=== PATIENT | female | born 1960 | race Caucasian/White ===

== ENCOUNTER 2016-10-22 13:08 | Inpatient (IN) | payer SELFPAY ==
[2016-10-22] MEDS ORDERED: ONDANSETRON HCL INJ/PF 4 MG/2 ML SDV IV ONE ×2 (13:37→15:29)
[2016-10-22] MEDS ORDERED: NORMAL SALINE 1000 ML 1,000 ML IV PRN (13:37)
[2016-10-22] MEDS ORDERED: MORPHINE SULFATE 10 MG/ML INJ IV ONE ×3 (13:38→18:31)
--- NOTE | 2016-10-22 13:40 | ER Document Report ---
ED Medical Screen (RME) - General Chief Complaint: Vomiting/Diarrhea Stated Complaint: VOMITING Time Seen by Provider: 10/22/16 13:36 Notes: one day history of vomiting/diarrhea/abdominal cramps. no vaginal sx's. denies chronic medical conditions. TRAVEL OUTSIDE OF THE [place] IN LAST 30 DAYS: No - Related Data Allergies/Adverse Reactions: No Known Allergies Allergy (Verified 10/22/16 13:21) Past Medical History - Social History Frequency of alcohol use: None Drug Abuse: None Renal/ Medical History: Denies: Hx Peritoneal Dialysis Past Surgical History: Reports: Hx Hysterectomy Physical Exam - Vital signs Vitals: Temp Pulse Resp BP Pulse Ox 98.6 F 54 L 18 145/69 H 100 10/22/16 13:24 10/22/16 13:24 10/22/16 13:24 10/22/16 13:24 10/22/16 13:24 Course - Vital Signs Vital signs: Temp Pulse Resp BP Pulse Ox 98.6 F 54 L 18 145/69 H 100 10/22/16 13:24 10/22/16 13:24 10/22/16 13:24 10/22/16 13:24 10/22/16 13:24
[2016-10-22 14:15] LABS: ABSOLUTE BASOPHILS # (AUTO) 0.2 10^3/uL (0.0-0.2); ABSOLUTE LYMPHOCYTES (AUTO) 1.5 10^3/uL (0.5-4.7); ABSOLUTE MONOCYTES (AUTO) 0.7 10^3/uL (0.1-1.4); ABSOLUTE NEUT (AUTO) 15.8 10^3/uL (1.7-8.2); BASOPHILS % (AUTO) 0.8 % (0-2); HEMATOCRIT 38.8 % (36.0-47.0); HEMOGLOBIN 13.2 g/dL (12.0-15.5); HGB HCT DIFFERENCE 0.8; LYMPHOCYTES % (AUTO) 8.1 % (13-45); MEAN CORPUSCULAR HEMOGLOBIN 30.4 pg (27.0-33.4); MEAN CORPUSCULAR VOLUME 89 fl (80-97); RED BLOOD COUNT 4.35 10^6/uL (3.72-5.28); RED CELL DISTRIBUTION WIDTH 13.1 % (11.5-14.0); SEGMENTED NEUTROPHILS % (AUTO) 87.1 % (42-78); WHITE BLOOD COUNT 18.2 10^3/uL (4.0-10.5)
[2016-10-22 14:33] LABS: ALANINE AMINOTRANSFERASE 19 U/L (9-52); ALBUMIN 4.7 g/dL (3.5-5.0); ALKALINE PHOSPHATASE 101 U/L (38-126); ANION GAP 17 (5-19); ASPARTATE AMINO TRANSFERASE 26 U/L (14-36); BILIRUBIN,DIRECT 0.4 mg/dL (0.0-0.4); BILIRUBIN,TOTAL 0.8 mg/dL (0.2-1.3); BLOOD UREA NITROGEN 17 mg/dL (7-20); CALCIUM 10.5 mg/dL (8.4-10.2); CARBON DIOXIDE 20 mmol/L (22-30); CHLORIDE 106 mmol/L (98-107); CREATININE RESULT 0.61 mg/dL (0.52-1.25); GLUCOSE 189 mg/dL (75-110); LIPASE 52.9 U/L (23-300); POTASSIUM 3.3 mmol/L (3.6-5.0); SODIUM 143.1 mmol/L (137-145)
--- NOTE | 2016-10-22 14:38 | ER Document Report ---
ED GI/ - General Chief Complaint: Vomiting/Diarrhea Stated Complaint: VOMITING Time Seen by Provider: 10/22/16 13:36 Notes: Patient says she was awakened about 1 AM this morning with severe abdominal pain , primarily in the epigastric region of the abdomen. She is also had vomiting and diarrhea since this pain started. She has never had anything like this before. Denies a history of alcohol intake or pancreatitis. Not aware of any fever. No UTI symptoms. Patient has a history of tubal surgery. History of tubal ligation. Very distant history about 30 years ago being told she had cervical cancer and underwent a partial hysterectomy in which her ovaries and tubes were removed but her uterus was left in place. Does not think she had her appendix out. Denies gallbladder removal. Patient is on no prescription medications. TRAVEL OUTSIDE OF THE [place] IN LAST 30 DAYS: No - Related Data Allergies/Adverse Reactions: No Known Allergies Allergy (Verified 10/22/16 13:21) Past Medical History - Social History Smoking Status: Current Every Day Smoker Frequency of alcohol use: None Drug Abuse: None Family History: Reviewed & Not Pertinent Patient has suicidal ideation: No Malignancy Medical History: Reports: Hx Cervical Cancer - Told 30 yrs ago she had cervical cancer, had partial hyst, removed ovaries Past Surgical History: Reports: Hx Abdominal Surgery - See above. Had a "partial hyst" and had ovaries and tubes removed., Hx Hysterectomy, Hx Ileostomy Review of Systems - Review of Systems Notes: REVIEW OF SYSTEMS: CONSTITUTIONAL : Does not think she has had a fever. Appears to be in significant pain, near tears. EENT: Denies eye, ear, nose or mouth or throat pain or other symptoms. CARDIOVASCULAR: Denies chest pain. RESPIRATORY: Denies cough, chest congestion, or shortness of breath. GASTROINTESTINAL: See HPI. GENITOURINARY: Denies difficulty or painful urinating, urinary frequency, blood in urine. MUSCULOSKELETAL: Denies back or neck pain. Denies joint pain or swelling. SKIN: Denies rash or skin lesions. NEUROLOGICAL: Denies LOC or altered mental status. Denies headache. Denies sensory loss or motor deficits. ALL OTHER SYSTEMS REVIEWED AND NEGATIVE. Physical Exam - Vital signs Vitals: Temp Pulse Resp BP Pulse Ox 98.6 F 54 L 18 145/69 H 100 10/22/16 13:24 10/22/16 13:24 10/22/16 13:24 10/22/16 13:24 10/22/16 13:24 Interpretation: Normal - Notes Notes: PHYSICAL EXAMINATION: GENERAL: Appears in pain. Near tearful. Vital signs are all normal. HEAD: Atraumatic, normocephalic. ENT: oropharynx clear without exudates. Moist mucous membranes. NECK: Normal range of motion, supple. LUNGS: Breath sounds clear and equal bilaterally. HEART: Regular rate and rhythm without murmurs. ABDOMEN: Very tender in the epigastric region of the abdomen. Some guarding may be present. No masses felt. No bruits heard. BACK: No tenderness throughout entire back. EXTREMITIES: Normal range of motion without pain. NEUROLOGICAL: Normal speech, normal gait. Normal sensory, motor, and reflex exams. Awake, alert, and oriented x3. Cranial nerves normal. PSYCH: Normal mood, normal affect. SKIN: Warm, dry, no rashes. Course - Re-evaluation Re-evalutation: 10/22/16 17:49 Patient was given 2 separate doses of morphine 4 mg IV for pain control and that seemed to help her pain significantly. She was also given a couple of doses of Zofran and 1 of Reglan which seemed to help her nausea and vomiting as well. Spoke with hospitalist on-call, Dr. Gibson, who will admit the patient for IV fluids and antibiotics. - Vital Signs Vital signs: Temp Pulse Resp BP Pulse Ox 98.6 F 54 L 18 145/69 H 100 10/22/16 13:24 10/22/16 13:24 10/22/16 13:24 10/22/16 13:24 10/22/16 13:24 - Laboratory Result Diagrams: 10/22/16 13:55 10/22/16 13:55 Laboratory results interpreted by me: 10/22/16 10/22/16 10/22/16 13:55 13:55 15:40 WBC 18.2 H Seg Neutrophils % 87.1 H Lymphocytes % 8.1 L Absolute Neutrophils 15.8 H Potassium 3.3 L Carbon Dioxide 20 L Glucose 189 H Calcium 10.5 H Urine Glucose (UA) 150 H Urine Ketones 20 H Urine Blood SMALL H Ur Leukocyte Esterase TRACE H - Diagnostic Test Radiology reviewed: Image reviewed, Reports reviewed - CT scan of the abdomen reveals diffuse thickening of the colon wall, consistent with colitis. Discharge - Discharge Clinical Impression: Abdominal pain, Colitis Condition: Stable Disposition: ADMITTED INPATIENT Admitting Provider: Hospitalist Unit Admitted: Medical Floor
[2016-10-22] MEDS ORDERED: METOCLOPRAMIDE HCL INJ/PF 10 MG/2 ML SDV IV ONE (15:30)
[2016-10-22] MEDS ORDERED: METOCLOPRAMIDE HCL INJ/PF 10 MG/2 ML SDV ONE (15:35)
[2016-10-22 16:07] LABS: APPEARANCE,URINE CLEAR; BILIRUBIN,URINE NEGATIVE (NEGATIVE); GLUCOSE, URINE 150 mg/dL (NEGATIVE); KETONES,URINE 20 mg/dL (NEGATIVE); LEUKOCYTE ESTERASE,URINE TRACE (NEGATIVE); NITRITE,URINE NEGATIVE (NEGATIVE); PROTEIN,URINE NEGATIVE (NEGATIVE); URINE SPECIFIC GRAVITY 1.014; UROBILINOGEN,URINE NEGATIVE mg/dL (<2.0)
--- NOTE | 2016-10-22 17:30 | RADIOLOGY REPORT (SQ) ---
EXAM DESCRIPTION: CT ABD/PELVIS WITH IV ORAL COMPLETED DATE/TIME: 10/22/2016 5:07 pm REASON FOR STUDY: Abdominal pain with vomiting and diarrhea COMPARISON: 02/27/2015. TECHNIQUE: CT scan of the abdomen and pelvis performed using helical scanning technique with dynamic intravenous contrast injection. No oral contrast. Images reviewed with lung, soft tissue, and bone windows. Reconstructed coronal and sagittal MPR images reviewed. Delayed images for evaluation of the urinary system also acquired. All images stored on PACS. All CT scanners at this facility use dose modulation, iterative reconstruction, and/or weight based d osing when appropriate to reduce radiation dose to as low as reasonably achievable (ALARA). [facility]: Dose Right [facility]: CareDose [facility]: Dose Right [facility]: Teradose 4D [facility]: Mapado CONTRAST TYPE AND DOSE: contrast/concentration: Isovue 370.00 mg/ml; Total Contrast Delivered: 49.0 ml; Total Saline Delivered: 65.0 ml RENAL FUNCTION: None required. The patient is less than 50 years old. RADIATION DOSE: Up-to-date CT equipment and radiation dose reduction techniques were employed. CTDIv ol: 4.8 - 5.3 mGy. DLP: 461 mGy-cm.. LIMITATIONS: None. FINDINGS: LOWER CHEST: No significant findings. No nodules or infiltrates. LIVER: Normal size. No masses. No dilated ducts. SPLEEN: Normal size. No focal lesions. PANCREAS: No masses. No significant calcifications. No adjacent inflammation or peripancreatic fluid collections. Pancreatic duct not dilated. GALLBLADDER: No identified stones by CT criteria. No inflammatory changes to suggest cholecystitis. ADRENAL GLANDS: No significant masses or asymmetry. RIGHT KIDNEY AND URETER: Small cortical cysts. No solid masses. No significant calcifications. N o hydronephrosis or hydroureter. LEFT KIDNEY AND URETER: Small cortical cysts. No solid masses. No significant calcifications. No hydronephrosis or hydroureter. AORTA AND VESSELS: No aneurysm. No dissection. Renal arteries, SMA, celiac without stenosis. RETROPERITONEUM: No retroperitoneal adenopathy, hemorrhage or masses. BOWEL AND PERITONEAL CAVITY: Suboptimal contrast filling of the distal small bowel and colon. Genera l bowel wall thickening throughout the colon. Scattered diverticuli in the sigmoid colon. No free f luid or peritoneal masses. APPENDIX: Not visualized. PELVIS: No mass. No free fluid. Normal bladder. ABDOMINAL WALL: No masses. No hernias. BONES: No significant or acute findings. OTHER: No other significant finding. IMPRESSION: 1. GENERAL BOWEL WALL THICKENING THROUGHOUT THE COLON. THIS MAY BE ARTIFACT DUE TO POOR CONTRAST DIS TENTION ALTHOUGH DIFFUSE COLITIS COULD BE POSSIBLE WELL. NO CLEAR-CUT INVOLVEMENT OF SMALL BOWEL. 2. SMALL CORTICAL CYSTS IN THE KIDNEYS. 3. NO OTHER SIGNIFICANT OR ACUTE FINDING IN THE ABDOMEN OR PELVIS ON CT SCAN WITH IV CONTRAST. TECHNICAL DOCUMENTATION: JOB ID: [id number] Quality ID # [id number]: Final reports with documentation of one or more dose reduction techniques (e.g., Au tomated exposure control, adjustment of the mA and/or kV according to patient size, use of iterative reconstruction technique) 2010 [employer]- All Rights Reserved
[2016-10-22] MEDS ORDERED: METRONIDAZOLE 500 MG/NS RTU 100 ML IV ONE (18:33)
[2016-10-22] MEDS ORDERED: ONDANSETRON HCL INJ/PF 4 MG/2 ML SDV IV PRN (18:48)
[2016-10-22] MEDS ORDERED: PIPERACILLIN/TAZOBACTAM 3.375 GM VIAL IV ONE (18:50)
[2016-10-22] MEDS ORDERED: PROMETHAZINE HCL INJ 25 MG/1 ML VIAL IV PRN ×2 (18:51→19:40)
[2016-10-22] MEDS ORDERED: PIPERACILLIN SODIUM/TAZOBACTAM 3.375 GM in DEXTROSE 5%-WATER 100 ML IV SCH (21:00)
[2016-10-22] MEDS: PIPERACILLIN SODIUM/TAZOBACTAM 3.375 GM in DEXTROSE 5%-WATER 100 ML IV SCH (21:36)
[2016-10-22] MEDS: POTASSI CL 20 MEQ/NS 1L 1,000 ML IV PRN (21:36)
--- NOTE | 2016-10-23 01:05 | PDOC H&P ---
History of Present Illness Admission Date/PCP: 10/22/16 18:39 No PCP Patient complains of: Abdominal pain with vomiting and diarrhea History of Present Illness: LEON SEXTON is a 55 year old female ending with a 1 day history of abdominal pain with vomiting and diarrhea. Patient states she was doing well until last night where she went to bed after eating onion rings and a cheeseburger anesthetic a bar. Patient said about 1:00 she started developing some abdominal cramping cold chills nausea vomiting and diarrhea. Patient states that she had multiple bouts of diarrhea at times unable to make it to the bathroom. Patient simultaneously had vomiting. Patient states she was just about vomiting fluids. Patient denied any blood in the stools. Patient denies anybody at home being sick however she does states that her neighbor's 2 children had similar symptoms earlier in the week. In the ED patient was found to have leukocytosis of 18,000 and mild hypokalemia of 3.3. CT scan was concerning for possible diffuse colitis. Hospitalist services core to admit the patient for symptomatic treatment of her colitis. Past Medical History Cardiac Medical History: Reports: None Pulmonary Medical History: Reports: None EENT Medical History: Reports: None Neurological Medical History: Reports: None Endocrine Medical History: Reports: None Renal/ Medical History: Reports: None Malignancy Medical History: Reports: Cervical Cancer - Told 30 yrs ago she had cervical cancer, had partial hyst, removed ovaries GI Medical History: Reports: None Musculoskeltal Medical History: Reports: None Psychiatric Medical History: Reports: Bipolar Disorder Traumatic Medical History: Reports: None Hematology: Reports: None Infectious Medical History: Reports: None Past Surgical History Past Surgical History: Reports: Hysterectomy, Ileostomy Social History Information Source: Patient Smoking Status: Current Every Day Smoker - Advance Directive Resuscitation Status: Full Code Family History Family History: Reviewed & Not Pertinent Parental Family History Reviewed: No Children Family History Reviewed: No Sibling(s) Family History Reviewed.: No Medication/Allergy Home Medications: No Home Medications 10/22/16 Allergies/Adverse Reactions: No Known Allergies Allergy (Verified 10/22/16 13:21) Review of Systems Constitutional: PRESENT: chills, weakness Ears: ABSENT: hearing changes Nose, Mouth, and Throat: PRESENT: mouth pain. ABSENT: vertigo Cardiovascular: ABSENT: chest pain Respiratory: ABSENT: dyspnea Gastrointestinal: PRESENT: abdominal pain, diarrhea, vomiting Genitourinary: ABSENT: dysuria Musculoskeletal: ABSENT: deformity Integumentary: PRESENT: diaphoresis Neurological: PRESENT: weakness Endocrine: ABSENT: menstrual abnormalities Physical Exam Vital Signs: Temp Pulse Resp BP Pulse Ox 98.6 F 57 L 16 107/51 L 98 10/22/16 20:40 10/22/16 20:40 10/22/16 20:40 10/22/16 20:40 10/22/16 20:40 General appearance: PRESENT: no acute distress, cooperative, thin Head exam: PRESENT: normocephalic Eye exam: PRESENT: EOMI Respiratory exam: PRESENT: clear to auscultation gayatri Cardiovascular exam: PRESENT: RRR GI/Abdominal exam: PRESENT: normal bowel sounds, soft. ABSENT: tenderness Rectal exam: PRESENT: deferred Extremities exam: PRESENT: full ROM. ABSENT: joint swelling Musculoskeletal exam: PRESENT: full ROM, normal inspection Neurological exam: PRESENT: alert, awake, oriented to person, oriented to place , oriented to time, oriented to situation, CN II-XII grossly intact Psychiatric exam: PRESENT: normal mood Results Impressions: Abdomen/Pelvis CT 10/22/16 00:00 IMPRESSION: 1. GENERAL BOWEL WALL THICKENING THROUGHOUT THE COLON. THIS MAY BE ARTIFACT DUE TO POOR CONTRAST DISTENTION ALTHOUGH DIFFUSE COLITIS COULD BE POSSIBLE WELL. NO CLEAR-CUT INVOLVEMENT OF SMALL BOWEL. 2. SMALL CORTICAL CYSTS IN THE KIDNEYS. 3. NO OTHER SIGNIFICANT OR ACUTE FINDING IN THE ABDOMEN OR PELVIS ON CT SCAN WITH IV CONTRAST. Assessment & Plan - Diagnosis (1) Abdominal pain Qualifiers: Abdominal location: generalized Qualified Code(s): R10.84 - Generalized abdominal pain Is this a current diagnosis for this admission?: Yes Plan: Most likely due to her colitis/gastroenteritis which could be viral in nature. Supportive treatment with pain medication and PPI. (2) Colitis Is this a current diagnosis for this admission?: Yes Plan: Seen on CT scan. Patient also with vomiting and diarrhea. This could most likely viral in nature. Will continue IV hydration and empiric antibiotics ( Zosyn and Flagyl). Stool studies were ordered including C. difficile. (3) Hypokalemia Plan: Patient placed on fluids with potassium. Patient hypokalemia most likely due to GI losses. (4) Leukocytosis Qualifiers: Leukocytosis type: leukemoid reaction Qualified Code(s): D72.823 - Leukemoid reaction Is this a current diagnosis for this admission?: Yes Plan: Could very well be reactive, due to hemoconcentration from dehydration resulting from the vomiting/diarrhea for could be related to acute GI infection. Urine not impressive and stool studies are ordered. Patient is on IV antibiotics empirically. Will repeat CBC in the morning to see if there is resolution. (5) Nausea and vomiting Qualifiers: Vomiting type: unspecified Vomiting Intractability: non-intractable Qualified Code(s): R11.2 - Nausea with vomiting, unspecified Is this a current diagnosis for this admission?: Yes Plan: Due to her colitis or gastroenteritis. Patient on as needed antiemetics. Also receiving fluid resuscitation. Patient started on a liquid diet. Has not had any more vomiting (6) Diarrhea Qualifiers: Diarrhea type: presumed infectious Qualified Code(s): A09 - Infectious gastroenteritis and colitis, unspecified Is this a current diagnosis for this admission?: Yes Plan: Due to a gastroenteritis and/or colitis. Stool studies were ordered awaiting specimen. Continue supportive care. - Time Time Spent: 30 to 50 Minutes Anticipated discharge: Home Within: within 48 hours - She is starting to already show clinical improvement.
[2016-10-23] MEDS: METRONIDAZOLE 500 MG/NS RTU 100 ML IV SCH ×2 (01:30→10:07)
[2016-10-23] MEDS: PIPERACILLIN SODIUM/TAZOBACTAM 3.375 GM in DEXTROSE 5%-WATER 100 ML IV SCH ×3 (03:13→14:27)
[2016-10-23 05:55] LABS: ABSOLUTE LYMPHOCYTES (AUTO) 3.2 10^3/uL (0.5-4.7); ABSOLUTE NEUT (AUTO) 8.1 10^3/uL (1.7-8.2); BASOPHILS % (AUTO) 0.3 % (0-2); EOSINOPHILS % (AUTO) 0.2 % (0-6); HEMATOCRIT 32.4 % (36.0-47.0); HEMOGLOBIN 11.4 g/dL (12.0-15.5); HGB HCT DIFFERENCE 1.8; MEAN CORPUSCULAR HEMOGLOBIN 31.7 pg (27.0-33.4); MEAN CORPUSCULAR HGB CONC 35.4 g/dL (32.0-36.0); MEAN CORPUSCULAR VOLUME 90 fl (80-97); MONOCYTES % (AUTO) 8.1 % (3-13); RED BLOOD COUNT 3.61 10^6/uL (3.72-5.28); RED CELL DISTRIBUTION WIDTH 13.1 % (11.5-14.0); SEGMENTED NEUTROPHILS % (AUTO) 65.4 % (42-78); WHITE BLOOD COUNT 12.5 10^3/uL (4.0-10.5)
[2016-10-23 06:07] LABS: ALANINE AMINOTRANSFERASE 15 U/L (9-52); ALBUMIN 3.8 g/dL (3.5-5.0); ALKALINE PHOSPHATASE 72 U/L (38-126); ANION GAP 10 (5-19); ASPARTATE AMINO TRANSFERASE 14 U/L (14-36); BILIRUBIN,DIRECT 0.4 mg/dL (0.0-0.4); BILIRUBIN,TOTAL 0.8 mg/dL (0.2-1.3); BLOOD UREA NITROGEN 10 mg/dL (7-20); CALCIUM 9.8 mg/dL (8.4-10.2); CARBON DIOXIDE 25 mmol/L (22-30); CHLORIDE 108 mmol/L (98-107); CREATININE RESULT 0.71 mg/dL (0.52-1.25); GLUCOSE 91 mg/dL (75-110); MAGNESIUM 1.9 mg/dL (1.6-2.3); POTASSIUM 4.1 mmol/L (3.6-5.0); SODIUM 143.1 mmol/L (137-145); TOTAL PROTEIN 6.5 g/dL (6.3-8.2)
[2016-10-23] MEDS: MORPHINE SULFATE 10 MG/ML INJ IV PRN ×2 (06:11→11:00)
[2016-10-23] MEDS ORDERED: PANTOPRAZOLE SODIUM 40 MG VIAL IV SCH (10:00)
[2016-10-23] MEDS: POTASSI CL 20 MEQ/NS 1L 1,000 ML IV PRN (10:06)
[2016-10-23 11:36] VITALS: BP 99/54
--- NOTE | 2016-10-23 13:11 | PDOC DISCHARGE SUMMARY ---
General - Admit/Disc Date/PCP Admission Date/Primary Care Provider: 10/22/16 18:39 Discharge Date: 10/23/16 - Discharge Diagnosis (1) Viral gastroenteritis Summary: Diarrhea has slowed. That is far the patient has had one small loose stool this morning. She would like to go home today. I think this is reasonable. Continue supportive care at home with copious p.o. fluids. She may follow with her outpatient doctor as needed. (2) Hypokalemia Summary: Supplemented and resolved. (3) Nausea and vomiting Is this a current diagnosis for this admission?: Yes Summary: Patient still complains of nausea but has not had any vomiting. - Additional Information Resuscitation Status: Full Code Home Medications: No Home Medications 10/22/16 History of Present Illness History of Present Illness: HPI as per admitting physician: Patient complains of: Abdominal pain with vomiting and diarrhea History of Present Illness: LEON SEXTON is a 55 year old female ending with a 1 day history of abdominal pain with vomiting and diarrhea. Patient states she was doing well until last night where she went to bed after eating onion rings and a cheeseburger anesthetic a bar. Patient said about 1:00 she started developing some abdominal cramping cold chills nausea vomiting and diarrhea. Patient states that she had multiple bouts of diarrhea at times unable to make it to the bathroom. Patient simultaneously had vomiting. Patient states she was just about vomiting fluids. Patient denied any blood in the stools. Patient denies anybody at home being sick however she does states that her neighbor's 2 children had similar symptoms earlier in the week. In the ED patient was found to have leukocytosis of 18,000 and mild hypokalemia of 3.3. CT scan was concerning for possible diffuse colitis. Hospitalist services core to admit the patient for symptomatic treatment of her colitis. Hospital Course Hospital Course: Patient was admitted to the hospital overnight. She did well with IV fluids. She had no further issues with vomiting although she continued to feel nauseous. Her diarrhea has slowed overnight. Initially she felt quite well in the dobie man hours but as the morning progressed, she developed abdominal pain again. She is been treated here with morphine and it was explained to her that she would not be discharged with any pain medicine. She received a dose of metronidazole and Zosyn while she was here. CT scan did show possibility of a colitis. However, I suspect this is likely a viral gastroenteritis that has to run its course and she can be treated with supportive care at home. She has not had any recent antibiotics. She suspects that she picked this up from the neighbor's children. Patient is stable and currently fit for discharge. She may follow-up with her regular doctor as needed. Stool studies were ordered but the patient did not produce enough stool to be sent. Physical Exam Vital Signs: Temp Pulse Resp BP Pulse Ox 98.6 F 55 L 14 99/54 L 97 10/23/16 11:29 10/23/16 11:29 10/23/16 11:29 10/23/16 11:29 10/23/16 11:29 Intake & Output 10/22/16 10/23/16 10/24/16 06:59 06:59 06:59 Intake Total 1050 Balance 1050 Weight 45.359 kg Results Laboratory Results: 10/23/16 05:17 10/23/16 05:17 10/23/16 10/23/16 05:17 05:17 WBC 12.5 H RBC 3.61 L Hgb 11.4 L Hct 32.4 L MCV 90 MCH 31.7 MCHC 35.4 RDW 13.1 Plt Count 298 Seg Neutrophils % 65.4 Lymphocytes % 26.0 Monocytes % 8.1 Eosinophils % 0.2 Basophils % 0.3 Absolute Neutrophils 8.1 Absolute Lymphocytes 3.2 Absolute Monocytes 1.0 Absolute Eosinophils 0.0 Absolute Basophils 0.0 Sodium 143.1 Potassium 4.1 Chloride 108 H Carbon Dioxide 25 Anion Gap 10 BUN 10 Creatinine 0.71 Est GFR ( Amer) > 60 Est GFR (Non-Af Amer) > 60 Glucose 91 Calcium 9.8 Magnesium 1.9 Total Bilirubin 0.8 AST 14 ALT 15 Alkaline Phosphatase 72 Total Protein 6.5 Albumin 3.8 Impressions: Abdomen/Pelvis CT 10/22/16 00:00 IMPRESSION: 1. GENERAL BOWEL WALL THICKENING THROUGHOUT THE COLON. THIS MAY BE ARTIFACT DUE TO POOR CONTRAST DISTENTION ALTHOUGH DIFFUSE COLITIS COULD BE POSSIBLE WELL. NO CLEAR-CUT INVOLVEMENT OF SMALL BOWEL. 2. SMALL CORTICAL CYSTS IN THE KIDNEYS. 3. NO OTHER SIGNIFICANT OR ACUTE FINDING IN THE ABDOMEN OR PELVIS ON CT SCAN WITH IV CONTRAST. Qualifiers PATEINT BEING DISCHARGED WITH ANY OF THE FOLLOWING DIAGNOSIS?: No Plan Time Spent: Less than 30 Minutes
[2016-10-23] MEDS ORDERED: ACETAMINOPHEN 325 MG TABLET PO PRN (14:16)
[2016-10-23] MEDS ORDERED: MORPHINE SULFATE 10 MG/ML INJ IV PRN (14:34)
== END 2016-10-23 15:07 | disposition home or self-care (01) | DRG 392 ==
LOC: ER 13:08 → EH 18:39 → UNDOADMIN 18:42 → EH 18:42 → 4S 20:30
PROVIDERS: ADMIT Pediatrics; ATTEND Pediatrics
DX: A08.4 Viral intestinal infection, unspecified (principal); E87.6 Hypokalemia; F31.9 Bipolar disorder, unspecified; F17.210 Nicotine dependence, cigarettes, uncomplicated
CPT/HCPCS: 36415; 74177; 80053; 81001; 83690; 83735; 85025; 87045; 87205; 87493; 96361; 96365; 96375; 96376; 99285; J2270; J2405; J2543; J2765; J3480; J7030; S0164

== ENCOUNTER 2017-09-26 11:02 | Emergency (ER) | payer SELFPAY ==
[2017-09-26] MEDS ORDERED: NORMAL SALINE 1000 ML 1,000 ML IV ONE (11:20)
--- NOTE | 2017-09-26 11:20 | ER Document Report ---
ED Medical Screen (RME) - General Chief Complaint: Nausea/Vomiting Stated Complaint: VOMITING Time Seen by Provider: 09/26/17 11:16 Mode of Arrival: Ambulatory Information source: Patient, [facility] [place] Records Notes: 56-year-old female presents with complaint of nausea, vomiting, abdominal pain and diarrhea that started yesterday evening. Patient states that she has had 5- 6 episodes of nonbilious vomiting. Patient's abdominal pain is located in the epigastric region. She denies any recent antibiotic use, recent travel and sick contacts. I have greeted and performed a rapid initial assessment of this patient. A comprehensive ED assessment and evaluation of the patient, analysis of test results and completion of medical decision making process we will be contacted by additional ED providers. PHYSICAL EXAMINATION: GENERAL: Ill-appearing, actively vomiting, mild distress HEAD: Atraumatic, normocephalic. EYES: Pupils equal round extraocular movements intact, conjunctiva are normal. ENT: Nares patent NECK: Normal range of motion LUNGS: No respiratory distress Musculoskeletal: Normal range of motion NEUROLOGICAL: Normal speech, normal gait. PSYCH: Normal mood, normal affect. SKIN: Warm, Dry, normal turgor, no rashes or lesions noted. TRAVEL OUTSIDE OF THE [place] IN LAST 30 DAYS: No - HPI Onset: Yesterday Onset/Duration: Gradual, Persistent, Worse Quality of pain: Achy, Throbbing Severity: Moderate Associated Symptoms: Dizzy/lightheaded, Nausea Exacerbated by: Denies Relieved by: Denies Similar symptoms previously: No Recently seen / treated by doctor: No - Related Data Smoking: Non-smoker Frequency of alcohol use: None Drug Abuse: None Allergies/Adverse Reactions: No Known Allergies Allergy (Verified 09/26/17 11:02) Past Medical History - Social History Chew tobacco use (# tins/day): No Frequency of alcohol use: Occasional Drug Abuse: None Renal/ Medical History: Denies: Hx Peritoneal Dialysis Malignancy Medical History: Reports: Hx Cervical Cancer - Told 30 yrs ago she had cervical cancer, had partial hyst, removed ovaries Psychiatric Medical History: Reports: Hx Bipolar Disorder Past Surgical History: Reports: Hx Abdominal Surgery - See above. Had a "partial hyst" and had ovaries and tubes removed., Hx Hysterectomy, Hx Ileostomy Physical Exam - Vital signs Vitals: Temp Pulse Resp BP Pulse Ox 98.6 F 71 22 H 127/87 H 100 09/26/17 11:09 09/26/17 11:09 09/26/17 11:09 09/26/17 11:09 09/26/17 11:09 Course - Vital Signs Vital signs: Temp Pulse Resp BP Pulse Ox 98.6 F 71 22 H 127/87 H 100 09/26/17 11:09 09/26/17 11:09 09/26/17 11:09 09/26/17 11:09 09/26/17 11:09
[2017-09-26] MEDS ORDERED: ONDANSETRON 4 MG TAB.RAPDIS PO ONE (11:21)
[2017-09-26] MEDS ORDERED: FAMOTIDINE INJ/PF 20 MG/2 ML SDV IV ONE (11:22)
[2017-09-26] MEDS ORDERED: MORPHINE SULFATE 10 MG/ML INJ IV ONE (11:22)
[2017-09-26] MEDS ORDERED: MAG HYDROX/AL HYDROX/SIMETH SUSP 30 ML UDCUP PO ONE (12:19)
[2017-09-26] MEDS ORDERED: LIDOCAINE 2% VISCOUS SOLN 20 ML UDCUP PO ONE (12:19)
--- NOTE | 2017-09-26 12:22 | ER Document Report ---
ED General - General Mode of Arrival: Ambulatory Information source: Patient TRAVEL OUTSIDE OF THE U.S. IN LAST 30 DAYS: No <JOSHUA CHRISTINE - Last Filed: 09/26/17 13:33> <EVIN MATTHEWS - Last Filed: 09/26/17 14:54> - General Chief Complaint: Nausea/Vomiting Stated Complaint: VOMITING Time Seen by Provider: 09/26/17 11:16 Notes: Patient is a 56 year old female presenting to the emergency department complaining of nausea, vomiting, diarrhea and abdominal pain onset this morning around 1200. Patient states she was awoken from her sleep due to abdominal cramps and proceeded to have continuos vomiting and diarrhea episodes throughout the morning. Patient states her symptoms are similar to when she had colitis approximately 1 year ago. She also complains of chills. Patient denies any recent sick contacts or fevers. 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 Psychiatric Medical History: Reports: Hx Bipolar Disorder Past Surgical History: Reports: Hx Abdominal Surgery - Had right Salpingo- oophorectomy and left partial salpingo-oophrectomy., Hx Ileostomy <JOSHUA CHRISTINE - Last Filed: 09/26/17 13:33> Review of Systems - Review of Systems Constitutional: No symptoms reported EENT: No symptoms reported Cardiovascular: No symptoms reported Respiratory: No symptoms reported Gastrointestinal: See HPI, Abdominal pain, Diarrhea, Nausea, Vomiting Genitourinary: No symptoms reported Female Genitourinary: No symptoms reported Musculoskeletal: No symptoms reported Skin: No symptoms reported Hematologic/Lymphatic: No symptoms reported Neurological/Psychological: No symptoms reported -: Yes All other systems reviewed and negative <JOSHUA CHRISTINE - Last Filed: 09/26/17 13:33> Physical Exam <JOSHUA CHRISTINE - Last Filed: 09/26/17 13:33> <EVIN MATTHEWS - Last Filed: 09/26/17 14:54> - Vital signs Vitals: Temp Pulse Resp BP Pulse Ox 98.6 F 71 22 H 127/87 H 100 09/26/17 11:09 09/26/17 11:09 09/26/17 11:09 09/26/17 11:09 09/26/17 11:09 - Notes Notes: GENERAL: Alert, interacts well. No acute distress. HEAD: Normocephalic, atraumatic. EYES: Pupils equal, round, and reactive to light. Extraocular movements intact. ENT: Oral mucosa moist, tongue midline. NECK: Full range of motion. Supple. Trachea midline. LUNGS: Clear to auscultation bilaterally, no wheezes, rales, or rhonchi. No respiratory distress. HEART: Regular rate and rhythm. No murmurs, gallops, or rubs. ABDOMEN: Soft, Most tender to the epigastric region, some tenderness to the RUQ , no guarding, rigidity or rebound. Non-distended. Decreased bowel sounds. EXTREMITIES: Moves all 4 extremities spontaneously. NEUROLOGICAL: Alert and oriented x3. Normal speech. PSYCH: Normal affect, normal mood. SKIN: Warm, dry, normal turgor. No rashes or lesions noted. (JOSHUA CHRISTINE) Course - Laboratory Result Diagrams: 09/26/17 11:40 09/26/17 11:40 <JOSHUA CHRISTINE - Last Filed: 09/26/17 13:33> - Laboratory Result Diagrams: 09/26/17 11:40 09/26/17 11:40 <EVIN MATTHEWS - Last Filed: 09/26/17 14:54> - Re-evaluation Re-evalutation: 09/26/17 13:04 The patient did get relief of her epigastric pain after drinking a GI cocktail. On repeat exam she is not tender in the epigastrium at this time. 09/26/17 13:05 The patient was admitted here on 10/22/2016 with similar symptoms, and at that time had a similar leukocytosis and shift as seen today. Final diagnosis on that visit was a probable gastroenteritis. 09/26/17 14:47 Patient continues to feel well, has been resting comfortably. There is been no diarrhea while in the emergency room. She will be given outpatient prescription for stool culture. (EVIN MATTHEWS) - Vital Signs Vital signs: Temp Pulse Resp BP Pulse Ox 98.6 F 71 22 H 127/87 H 100 09/26/17 11:09 09/26/17 11:09 09/26/17 11:09 09/26/17 11:09 09/26/17 11:09 - Laboratory Laboratory results interpreted by me: 09/26/17 09/26/17 09/26/17 11:40 11:40 13:30 WBC 16.4 H Hct 34.5 L Seg Neutrophils % 87.1 H Lymphocytes % 10.2 L Monocytes % 2.2 L Absolute Neutrophils 14.3 H Potassium 3.4 L Carbon Dioxide 18 L Glucose 128 H Urine Glucose (UA) >=500 H Urine Ketones 20 H Urine Blood MODERATE H Discharge <JOSHUA CHRISTINE - Last Filed: 09/26/17 13:33> <EVIN MATTHEWS - Last Filed: 09/26/17 14:54> - Discharge Clinical Impression: Nausea, vomiting and diarrhea, Epigastric abdominal pain Leukocytosis Qualifiers: Leukocytosis type: unspecified Qualified Code(s): D72.829 - Elevated white blood cell count, unspecified Condition: Stable Disposition: HOME, SELF-CARE Additional Instructions: Gastroenteritis: You most likely have gastroenteritis. This is an irritation of the stomach and intestinal tract. It's usually caused by a virus, but can also be caused by bacteria, toxins that cause food poisoning, or excessive alcohol intake. Symptoms may include fever, painful abdominal cramps, nausea, vomiting , and diarrhea. Start with small amounts (two to six ounces) of clear liquids (soft drinks , herb teas, broth, etc). Try to take fluids frequently even if you are vomiting, to prevent dehydration. When liquids are being consumed successfully , advance to small amounts of bland food (mashed potato, toast) for 6 - 12 hours. Gastroenteritis rarely requires medication. It goes away by itself. Use good handwashing so you don't spread germs. Wash underwear in very hot water. If symptoms are severe, talk to the doctor. Call your physician if blood appears in your vomitus or stool, if vomiting lasts longer than 24 hours, if the abdominal pain worsens or becomes localized to one area, or if you develop high fever. Take something like Mylanta or Maalox every few hours to keep the acid in your stomach neutralized. Take medication as prescribed for nausea if needed. Drink cool clear liquids today. Collect a stool specimen and returned it to the lab if you have additional diarrhea episodes. Try Pepto-Bismol for diarrhea if needed. Follow-up with a local medical doctor if not improving. RETURN TO THE EMERGENCY ROOM IF ANY NEW OR WORSENING SYMPTOMS. Prescriptions: Metoclopramide HCl [Reglan 10 mg Tablet] 1 tab PO Q4 PRN #12 tablet PRN Reason: For Nausea/Vomiting Forms: Follow-Up Laboratory Testing Scribe Attestation: 09/26/17 13:22 I personally performed the services described in the documentation, reviewed and edited the documentation which was dictated to the scribe in my presence, and it accurately records my words and actions. (EVIN MATTHEWS) Scribe Documentation - Scribe Written by Rosalba:: Rosalba Sage, 09/26/2017 12:30 acting as scribe for :: Chay <JOSHUA CHRISTINE - Last Filed: 09/26/17 13:33>
[2017-09-26 12:23] LABS: ABSOLUTE BASOPHILS # (AUTO) 0.1 10^3/uL (0.0-0.2); ABSOLUTE LYMPHOCYTES (AUTO) 1.7 10^3/uL (0.5-4.7); ABSOLUTE MONOCYTES (AUTO) 0.4 10^3/uL (0.1-1.4); ABSOLUTE NEUT (AUTO) 14.3 10^3/uL (1.7-8.2); BASOPHILS % (AUTO) 0.5 % (0-2); HEMATOCRIT 34.5 % (36.0-47.0); LYMPHOCYTES % (AUTO) 10.2 % (13-45); MEAN CORPUSCULAR HEMOGLOBIN 30.1 pg (27.0-33.4); MEAN CORPUSCULAR HGB CONC 34.8 g/dL (32.0-36.0); MEAN CORPUSCULAR VOLUME 87 fl (80-97); MONOCYTES % (AUTO) 2.2 % (3-13); PLATELET COUNT 444 10^3/uL (150-450); RED BLOOD COUNT 3.99 10^6/uL (3.72-5.28); RED CELL DISTRIBUTION WIDTH 13.2 % (11.5-14.0); SEGMENTED NEUTROPHILS % (AUTO) 87.1 % (42-78); TOTAL CELLS COUNTED % (AUTO) 100 %; WHITE BLOOD COUNT 16.4 10^3/uL (4.0-10.5)
[2017-09-26 12:40] LABS: ALANINE AMINOTRANSFERASE 26 U/L (9-52); ALBUMIN 4.8 g/dL (3.5-5.0); ALKALINE PHOSPHATASE 90 U/L (38-126); ANION GAP 18 (5-19); ASPARTATE AMINO TRANSFERASE 31 U/L (14-36); BILIRUBIN,DIRECT 0.3 mg/dL (0.0-0.4); BILIRUBIN,TOTAL 0.9 mg/dL (0.2-1.3); BLOOD UREA NITROGEN 18 mg/dL (7-20); CARBON DIOXIDE 18 mmol/L (22-30); CHLORIDE 103 mmol/L (98-107); GLUCOSE 128 mg/dL (75-110); LIPASE 62.9 U/L (23-300); POTASSIUM 3.4 mmol/L (3.6-5.0); TOTAL PROTEIN 8.2 g/dL (6.3-8.2)
[2017-09-26] MEDS ORDERED: DEXTROSE 5%-LACTATED RINGERS 1,000 ML IV ONE (12:43)
[2017-09-26 14:12] LABS: APPEARANCE,URINE CLEAR; BILIRUBIN,URINE NEGATIVE (NEGATIVE); COLOR,URINE STRAW; GLUCOSE, URINE >=500 mg/dL (NEGATIVE); KETONES,URINE 20 mg/dL (NEGATIVE); LEUKOCYTE ESTERASE,URINE NEGATIVE (NEGATIVE); NITRITE,URINE NEGATIVE (NEGATIVE); PROTEIN,URINE NEGATIVE (NEGATIVE); URINE SPECIFIC GRAVITY 1.005; UROBILINOGEN,URINE NEGATIVE mg/dL (<2.0)
[2017-09-26 15:23] VITALS: BP 103/59
== END 2017-09-26 15:23 | disposition home or self-care (01) ==
LOC: ER 11:02
DX: R11.2 Nausea with vomiting, unspecified (principal); R19.7 Diarrhea, unspecified; D72.829 Elevated white blood cell count, unspecified; R10.13 Epigastric pain; Z87.891 Personal history of nicotine dependence
CPT/HCPCS: 99284; 96361; 96374; 96375; 36415; 83690; 85025; 80053; 81001; S0119; J3490; J2270; J7030; S0028

== ENCOUNTER 2019-01-16 17:13 | Emergency (ER) | payer SELFPAY ==
--- NOTE | 2019-01-16 17:59 | ER Document Report ---
ED General - General Chief Complaint: Allergic Reaction Stated Complaint: POSSIBLE ALLERGIC REACTION Time Seen by Provider: 01/16/19 17:57 Primary Care Provider: FAVIOLA RETANA MD [ACTIVE STAFF] - Follow up as needed WU ZABALA DO [ACTIVE STAFF] - Follow up as needed Mode of Arrival: Ambulatory Information source: Patient TRAVEL OUTSIDE OF THE [place] IN LAST 30 DAYS: No - HPI Patient complains to provider of: rash to face and around left eye Onset: Yesterday Onset/Duration: Gradual Quality of pain: Burning Severity: Moderate Pain Level: 3 Associated symptoms: Nausea Exacerbated by: Other - rubbing/scratching Relieved by: Other - nothing Similar symptoms previously: No Recently seen / treated by doctor: No Notes: 58 year old female with no significant PMH here for a rash to her face (worst on left side of her face and around her left) for the last several days which draper and is causing some drainage from her left eye and mild blurry vision. The patient was doing yard work the other day and although she does not remember being exposed to poison cristiana or poison oak she thinks she could have been. The patient denies the rash being itchy. The patient denies known allergies. The patient says the area started off on the left side of her face and it has spread to the encompass some of the right side of her face now. The patient has felt slightly nauseated but otherwise she has not had any systemic symptoms. - Related Data Allergies/Adverse Reactions: No Known Allergies Allergy (Verified 09/26/17 11:02) Past Medical History - Social History Smoking Status: Current Every Day Smoker Frequency of alcohol use: None Drug Abuse: None Lives with: Spouse/Significant other Family History: Reviewed & Not Pertinent Patient has suicidal ideation: No Patient has homicidal ideation: No - Past Medical History Cardiac Medical History: Reports: None Pulmonary Medical History: Reports: None EENT Medical History: Reports: None Endocrine Medical History: Reports: None Renal/ Medical History: Reports: None, Hx Ectopic . Denies: Hx Peritoneal Dialysis Malignancy Medical History: Reports: Hx Cervical Cancer - Told 30 yrs ago she had cervical cancer, had partial hyst, removed ovaries GI Medical History: Reports: None Musculoskeletal Medical History: Reports None Psychiatric Medical History: Reports: Hx Bipolar Disorder Past Surgical History: Reports: Hx Abdominal Surgery - Had right Salpingo- oophorectomy and left partial salpingo-oophrectomy., Hx Hysterectomy, Hx Ileostomy Review of Systems - Review of Systems Constitutional: No symptoms reported EENT: See HPI, Eye pain, Eye discharge, Blurred vision, Tearing Cardiovascular: No symptoms reported Respiratory: No symptoms reported Gastrointestinal: Nausea Genitourinary: No symptoms reported Female Genitourinary: No symptoms reported Musculoskeletal: No symptoms reported Skin: Rash Hematologic/Lymphatic: No symptoms reported Neurological/Psychological: No symptoms reported -: Yes All other systems reviewed and negative Physical Exam - Vital signs Vitals: Temp Pulse Resp BP Pulse Ox 98.2 F 69 16 92/48 L 97 01/16/19 17:24 01/16/19 17:24 01/16/19 17:24 01/16/19 17:24 01/16/19 17:24 - General Notes: GENERAL: Well-appearing, well-nourished and in no acute distress. HEAD: Atraumatic, normocephalic. EYES: Pupils equal round and reactive to light, extraocular movements intact, sclera anicteric, conjunctiva are normal. ENT: TMs normal, nares patent, oropharynx clear without exudates. Moist mucous membranes. NECK: Normal range of motion, supple without lymphadenopathy or JVD. LUNGS: Breath sounds clear to auscultation bilaterally and equal. No wheezes rales or rhonchi. HEART: Regular rate and rhythm without murmurs, rubs or gallops. ABDOMEN: Soft, nontender, normoactive bowel sounds. No guarding, no rebound. No masses appreciated. EXTREMITIES: Normal range of motion, no pitting or edema. No clubbing or cyanosis. NEUROLOGICAL: Cranial nerves II through XII grossly intact. Normal speech, normal gait. PSYCH: Normal mood, normal affect. SKIN: Warm, Dry, normal turgor. Contact Dermatitis with Vesicles on left side of face, around left eye, and on right chin Course - Re-evaluation Re-evalutation: 01/16/19 19:05 The patient has contact dermatitis from either poison cristiana or poison oak. The patient developed a facial rash several days ago after doing yard work. The patient says the rash draper and now she has some pain in her right eye. On exam she seems to also have a left sided corneal abrasion (likely from rubbing her eye due to irritation from the contact dermatitis of the structures around her left eye. Will treat patient with oral prednisone taper for 12 days as well as Erythromycin Ointment. Patient told to follow up with a PCP and Eye Doctor if symptoms persist despite treatment. - Vital Signs Vital signs: Temp Pulse Resp BP Pulse Ox 98.2 F 69 16 92/48 L 97 01/16/19 17:24 01/16/19 17:24 01/16/19 17:24 01/16/19 17:24 01/16/19 17:24 Discharge - Discharge Clinical Impression: Poison cristiana dermatitis Condition: Fair Disposition: HOME, SELF-CARE Instructions: Poison Cristiana ([facility]) Additional Instructions: Take oral steroids (prednisone) as prescribed. Use high dose Motrin/Ibuprofen for facial pain/swelling. Use eye ointment as prescribed. Follow up with a primary care doctor if your rash persists. Follow up with an Eye Doctor if your blurry vision persists despite treatment. Prescriptions: Erythromycin Base [Erythromycin Oph 1 Gm Oint Ud] 1 applic OS QID #1 tube Prednisone 10 mg PO DAILY 12 Days #42 tab.ds.pk Referrals: FAVIOLA RETANA MD [ACTIVE STAFF] - Follow up as needed WU ZABALA DO [ACTIVE STAFF] - Follow up as needed
[2019-01-16] MEDS ORDERED: TETRACAINE HCL 0.5% OPH SOLN 4 ML OD ONE (18:11)
[2019-01-16] MEDS ORDERED: PREDNISONE 20 MG TABLET PO ONE (18:29)
[2019-01-16 19:02] VITALS: BP 113/64
== END 2019-01-16 19:14 | disposition home or self-care (01) ==
LOC: ER 17:13
DX: L23.7 Allergic contact dermatitis due to plants, except food (principal); R21 Rash and other nonspecific skin eruption; H57.89 Other specified disorders of eye and adnexa; H53.8 Other visual disturbances; R11.0 Nausea; F17.200 Nicotine dependence, unspecified, uncomplicated
CPT/HCPCS: 99283; J7512; J3490

== ENCOUNTER 2019-01-19 09:55 | Emergency (ER) | payer SELFPAY ==
[2019-01-19] MEDS ORDERED: ACYCLOVIR 800 MG TABLET PO ONE (10:20)
--- NOTE | 2019-01-19 10:26 | ER Document Report ---
ED Medical Screen (RME) - General Chief Complaint: Eye Pain Stated Complaint: EYE SWOLLEN SHUT Time Seen by Provider: 01/19/19 10:11 Notes: Patient is a 58-year-old female who presents to the emergency department with a chief complaint of left facial swelling. Patient was seen here in the emergency department 3 days ago and was diagnosed with poison danielle exposure. She has been on steroids and erythromycin eye ointment, but states her symptoms have gotten worse. She was working out in the yard that day. Exam: Erythema noted to midline of her face that has a significant line, along with vesicles both erupted and intact. Consistent with shingles. I have greeted and performed a rapid initial assessment of this patient. A comprehensive ED assessment and evaluation of the patient, analysis of test results and completion of medical decision making process will be conducted by an additional ED providers. TRAVEL OUTSIDE OF THE [place] IN LAST 30 DAYS: No - Related Data Allergies/Adverse Reactions: No Known Allergies Allergy (Verified 01/19/19 10:12) Past Medical History - Social History Chew tobacco use (# tins/day): No Frequency of alcohol use: None Drug Abuse: None Renal/ Medical History: Reports: Hx Ectopic . Denies: Hx Peritoneal Dialysis Malignancy Medical History: Reports: Hx Cervical Cancer - Told 30 yrs ago she had cervical cancer, had partial hyst, removed ovaries Psychiatric Medical History: Reports: Hx Bipolar Disorder Past Surgical History: Reports: Hx Abdominal Surgery - Had right Salpingo- oophorectomy and left partial salpingo-oophrectomy., Hx Hysterectomy, Hx Ileostomy Physical Exam - Vital signs Vitals: Temp Pulse Resp BP Pulse Ox 97.5 F 66 18 148/96 H 98 01/19/19 10:10 01/19/19 10:10 01/19/19 10:10 01/19/19 10:10 01/19/19 10:10 Course - Vital Signs Vital signs: Temp Pulse Resp BP Pulse Ox 97.5 F 66 18 148/96 H 98 01/19/19 10:12 01/19/19 10:12 01/19/19 10:12 01/19/19 10:12 01/19/19 10:12
[2019-01-19 10:52] LABS: ABSOLUTE LYMPHOCYTES (AUTO) 2.8 10^3/uL (0.5-4.7); ABSOLUTE MONOCYTES (AUTO) 0.9 10^3/uL (0.1-1.4); ABSOLUTE NEUT (AUTO) 6.8 10^3/uL (1.7-8.2); BASOPHILS % (AUTO) 0.4 % (0-2); EOSINOPHILS % (AUTO) 0.1 % (0-6); HEMATOCRIT 38.7 % (36.0-47.0); HEMOGLOBIN 13.4 g/dL (12.0-15.5); LYMPHOCYTES % (AUTO) 26.8 % (13-45); MEAN CORPUSCULAR HEMOGLOBIN 29.8 pg (27.0-33.4); MEAN CORPUSCULAR HGB CONC 34.5 g/dL (32.0-36.0); MEAN CORPUSCULAR VOLUME 86 fl (80-97); MONOCYTES % (AUTO) 8.7 % (3-13); PLATELET COUNT 394 10^3/uL (150-450); RED BLOOD COUNT 4.48 10^6/uL (3.72-5.28); RED CELL DISTRIBUTION WIDTH 13.4 % (11.5-14.0); TOTAL CELLS COUNTED % (AUTO) 100 %; WHITE BLOOD COUNT 10.6 10^3/uL (4.0-10.5)
[2019-01-19 11:12] LABS: ALBUMIN 4.5 g/dL (3.5-5.0); ALKALINE PHOSPHATASE 75 U/L (38-126); ANION GAP 12 (5-19); ASPARTATE AMINO TRANSFERASE 20 U/L (14-36); BILIRUBIN,DIRECT 0.1 mg/dL (0.0-0.4); BILIRUBIN,TOTAL 0.6 mg/dL (0.2-1.3); BLOOD UREA NITROGEN 18 mg/dL (7-20); CALCIUM 9.4 mg/dL (8.4-10.2); CARBON DIOXIDE 27 mmol/L (22-30); CHLORIDE 102 mmol/L (98-107); GLUCOSE 92 mg/dL (75-110); POTASSIUM 3.4 mmol/L (3.6-5.0); TOTAL PROTEIN 8.1 g/dL (6.3-8.2)
[2019-01-19] MEDS ORDERED: HYDROCODONE/ACETAMINOPHEN 5-325 MG TABLET PO ONE (11:23)
--- NOTE | 2019-01-19 12:14 | RADIOLOGY REPORT (SQ) ---
EXAM DESCRIPTION: CT FACIAL AREA WITH COMPLETED DATE/TIME: 01/19/2019 11:40 am REASON FOR STUDY: left sided facial swelling COMPARISON: None. TECHNIQUE: Post contrast images through the facial bones and orbits windowed for bone and soft tissu e. Additional coronal and sagittal reconstructed images reviewed. All images stored on PACS. All CT scanners at this facility use dose modulation, iterative reconstruction, and/or weight based d osing when appropriate to reduce radiation dose to as low as reasonably achievable (ALARA). [facility]: Dose Right [facility]: CareDose [facility]: Dose Right [facility]: Teradose 4D [facility]: Duck Duck Moose CONTRAST TYPE AND DOSE: contrast/concentration: Isovue 350.00 mg/ml; Total Contrast Delivered: 69.0 ml; Total Saline Delivered: 55.0 ml RENAL FUNCTION: Creatinine 0.68 RADIATION DOSE: CT Rad equipment meets quality standard of care and radiation dose reduction techniq ues were employed. CTDIvol: 30.4 mGy. DLP: 614 mGy-cm. . LIMITATIONS: None. FINDINGS: FACIAL BONES: No fracture or bone lesion. Zygomatic arches, pterygopalatine plates and ma ndibular condyles are well aligned. ORBITS: There is asymmetric enlargement of the anterior chamber of the left globe (series 3, image 53 ). Remaining globes appear intact. No retroorbital hematoma or abnormal soft tissues. PARANASAL SINUSES: Clear. No significant mucosal thickening, mass or fluid. No nasal polyps. Maxilla ry sinus outlets are patent. SOFT TISSUES: There is asymmetric subcutaneous stranding and soft tissue swelling involving the left anterior maxillary and frontal soft tissues. No evidence of discrete formed drainable collection. N o evidence of discrete mass. No abnormal enhancement. Shotty left-sided cervical nodes without disc rete adenopathy. INFERIOR BRAIN: Limited view. No acute findings. OTHER: Periapical lucencies about the left premolar and right 2nd and 3rd molars. IMPRESSION: 1. Asymmetric enlargement of the anterior chamber of the left globe which can be spleen with scleral injury. Recommend ophthalmological evaluation. 2. Subcutaneous stranding and soft tissue swelling involving the left anterior maxillary and frontal soft tissues, possibly secondary to trauma or cellulitis. No evidence of postseptal extension. No focal drainable collection. No discrete mass. 3. Shotty left cervical lymph nodes without discrete adenopathy, likely reactive. Findings discussed with Dr. Blankenship at 1208 hours on 01/19/2019. TECHNICAL DOCUMENTATION: JOB ID: [id number] Quality ID # [id number]: Final reports with documentation of one or more dose reduction techniques (e.g., Au tomated exposure control, adjustment of the mA and/or kV according to patient size, use of iterative reconstruction technique) 2010 [employer]- All Rights Reserved Reading location - IP/workstation name: [email or web address]
[2019-01-19 12:35] VITALS: BP 138/75
--- NOTE | 2019-01-19 14:47 | ER Document Report ---
Entered by JOHANNA SERRANO SCRIBE 01/19/19 1157 Acting as scribe for:EVIN MATTHEWS MD ED Skin Rash/Insect Bite/Abscs - General Chief Complaint: Eye Pain Stated Complaint: EYE SWOLLEN SHUT Time Seen by Provider: 01/19/19 10:11 Primary Care Provider: ROEL GUEVARA DO [ACTIVE STAFF] - 01/19/19 1:30 pm Mode of Arrival: Ambulatory Information source: Patient Notes: This 58-year-old female patient presents to the emergency department today with complaints of pain, swelling, and vesicular lesions to her left face, eye, and scalp. Patient was seen here three days ago and was told that her symptoms were consistent with poison danielle induced dermatitis. Patient states this area has never itched and it is extremely painful, describing the pain as a burning sensation. Patient was sent home on high-dose steroids which she states she has taken without any change in her symptoms. Patient states she was told to follow-up with an eye doctor or primary care physician if her symptoms did not improve or became worse. Patient states she has never seen an eye doctor before so she did not go to anyone since discharge. TRAVEL OUTSIDE OF THE [place] IN LAST 30 DAYS: No - Related Data Allergies/Adverse Reactions: No Known Allergies Allergy (Verified 01/19/19 10:12) Past Medical History - General Information source: Patient - Social History Smoking Status: Current Every Day Smoker Cigarette use (# per day): Yes - 1 pack per week Chew tobacco use (# tins/day): No Frequency of alcohol use: None Drug Abuse: None Lives with: Family Family History: Reviewed & Not Pertinent Patient has suicidal ideation: No Patient has homicidal ideation: No Renal/ Medical History: Reports: Hx Ectopic Psychiatric Medical History: Reports: Hx Bipolar Disorder - controlled without medication Past Surgical History: Reports: Hx Abdominal Surgery - Bilateral Salpingo- oophorectomy Review of Systems - Review of Systems Constitutional: No symptoms reported EENT: See HPI, Eye pain, Eye discharge Cardiovascular: No symptoms reported Respiratory: No symptoms reported Gastrointestinal: No symptoms reported Genitourinary: No symptoms reported Female Genitourinary: No symptoms reported Musculoskeletal: No symptoms reported Skin: See HPI, Lesions, Rash Hematologic/Lymphatic: No symptoms reported Neurological/Psychological: No symptoms reported -: Yes All other systems reviewed and negative Physical Exam - Vital signs Vitals: Temp Pulse Resp BP Pulse Ox 97.5 F 66 18 148/96 H 98 01/19/19 10:10 01/19/19 10:10 01/19/19 10:10 01/19/19 10:10 01/19/19 10:10 - Notes Notes: Physical Exam: General: Alert, appears uncomfortable. HEENT: Normocephalic. Atraumatic. PERRLA. Extraocular movements intact. Oropharynx clear. Neck: Supple. Respiratory: No respiratory distress. Abdominal: Normal Inspection. No distension. Extremities: Moves all four extremities. Neurological: Normal cognition. AAOx4. Normal speech. Psychological: Normal affect. Normal Mood. Skin: Erythema with vesicular lesions in a dermatomal distribution of V1 ophthalmic nerve, consistent with shingles. Some blisters are intact and some are already ruptured. These lesions are exquisitely painful to touch. Lesions extend from left cheek to scalp. Does not cross midline. Course - Vital Signs Vital signs: Temp Pulse Resp BP Pulse Ox 98.6 F 55 L 18 138/75 H 100 01/19/19 12:35 01/19/19 12:35 01/19/19 12:35 01/19/19 12:35 01/19/19 12:35 - Laboratory Result Diagrams: 01/19/19 10:28 01/19/19 10:28 Laboratory results interpreted by me: 01/19/19 01/19/19 10:28 10:28 WBC 10.6 H Potassium 3.4 L - Diagnostic Test Radiology reviewed: Image reviewed, Reports reviewed - CT scan of the face shows asymmetric enlargement of the anterior chamber of the left globe. - Consults Dr. Guevara Time consulted: 12:00 Consulted provider: follow-up in office - Will see in the [place] office at 1:30 PM today. Discharge - Discharge Clinical Impression: Shingles of eyelid Condition: Stable Disposition: HOME, SELF-CARE Additional Instructions: Take the valacyclovir 3 times daily for 1 week as prescribed. Go to see Dr. Guevara in the office today at 1:30 PM. Prescriptions: Valacyclovir HCl [Valtrex] 1,000 mg PO TID #21 tablet Referrals: ROEL GUEVARA DO [ACTIVE STAFF] - 01/19/19 1:30 pm Scribe Attestation: 01/19/19 12:07 I personally performed the services described in the documentation, reviewed and edited the documentation which was dictated to the scribe in my presence, and it accurately records my words and actions. I personally performed the services described in the documentation, reviewed and edited the documentation which was dictated to the scribe in my presence, and it accurately records my words and actions.
== END 2019-01-19 12:38 | disposition home or self-care (01) ==
LOC: ER 09:55
DX: B02.39 Other herpes zoster eye disease (principal); F17.210 Nicotine dependence, cigarettes, uncomplicated
CPT/HCPCS: 99284; 36415; 85025; 80053; 70487; J3490

== ENCOUNTER → 2019-01-20 | Outpatient (CLI) | payer SELFPAY ==
[2019-01-19 12:35] VITALS: BP 138/75
--- NOTE | 2019-01-20 14:11 | RADIOLOGY REPORT (SQ) ---
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 Additional co dion and sagittal reconstructed images reviewed. All images stored on PACS. All CT scanners at this facility use dose modulation, iterative reconstruction, and/or weight based d osing when appropriate to reduce radiation dose to as low as reasonably achievable (ALARA). [facility]: Dose Right [facility]: CareDose [facility]: Dose Right [facility]: Teradose 4D [facility]: Ecol[employer]rium CONTRAST TYPE AND DOSE: contrast/concentration: Isovue 350.00 mg/ml; Total Contrast Delivered: 50.0 ml; Total Saline Delivered: 55.0 ml RENAL FUNCTION: See chart RADIATION DOSE: . LIMITATIONS: None. FINDINGS: FACIAL BONES: No fracture or bone lesion. ORBITS: The orbits are intact. Previously-seen apparent asymmetric enlargement of the left anterior chamber is decreased. There is a single focus of gas within the region of the left anterior globe, l ikely of limited significant. Globes are otherwise symmetric. Lenses are in intact. PARANASAL SINUSES: Clear. No significant mucosal thickening, mass or fluid. SOFT TISSUES: Again seen is ill-defined soft tissue swelling along the left anterior maxillary and fr ontal soft tissues. No evidence of postseptal extension. No focal drainable collection. No CT evide nce of acute sinusitis. INFERIOR BRAIN: Limited view. No acute findings. OTHER: No other significant finding. IMPRESSION: 1. Ill-defined soft tissue swelling along the left anterior maxillary and frontal soft tissues. No evidence of focal drainable collection or postseptal extension. No intraconal fluid col lection, mass or hemorrhage. 2. Previously apparent asymmetric enlargement of the left anterior chamber has resolved. Single foc us of gas within the region of the anterior left globe likely of limited significance. TECHNICAL DOCUMENTATION: JOB ID: [id number] Quality ID # [id number]: Final reports with documentation of one or more dose reduction techniques (e.g., Au tomated exposure control, adjustment of the mA and/or kV according to patient size, use of iterative reconstruction technique) 2010 [employer]- All Rights Reserved Reading location - IP/workstation name: [email or web address]
== END ==
LOC: RAD 11:37
PROVIDERS: ATTEND Ophthalmology
DX: B02.39 Other herpes zoster eye disease (principal); H05.012 Cellulitis of left orbit
CPT/HCPCS: 70481

== ENCOUNTER 2019-04-22 07:18 | Emergency (ER) | payer OTHER ==
[2019-04-22] MEDS ORDERED: NORMAL SALINE 1000 ML 1,000 ML IV ONE (07:41)
[2019-04-22] MEDS ORDERED: ONDANSETRON HCL INJ/PF 4 MG/2 ML SDV IV ONE (07:41)
[2019-04-22 08:16] LABS: ABSOLUTE BASOPHILS # (AUTO) 0.1 10^3/uL (0.0-0.2); ABSOLUTE EOSINOPHILS # (AUTO) 0.1 10^3/uL (0.0-0.6); ABSOLUTE LYMPHOCYTES (AUTO) 3.1 10^3/uL (0.5-4.7); ABSOLUTE MONOCYTES (AUTO) 0.6 10^3/uL (0.1-1.4); ABSOLUTE NEUT (AUTO) 8.3 10^3/uL (1.7-8.2); BASOPHILS % (AUTO) 0.6 % (0-2); EOSINOPHILS % (AUTO) 0.5 % (0-6); HEMATOCRIT 42.3 % (36.0-47.0); HEMOGLOBIN 14.6 g/dL (12.0-15.5); LYMPHOCYTES % (AUTO) 25.8 % (13-45); MEAN CORPUSCULAR HEMOGLOBIN 29.7 pg (27.0-33.4); MEAN CORPUSCULAR HGB CONC 34.4 g/dL (32.0-36.0); MEAN CORPUSCULAR VOLUME 86 fl (80-97); MONOCYTES % (AUTO) 5.1 % (3-13); PLATELET COUNT 458 10^3/uL (150-450); RED CELL DISTRIBUTION WIDTH 13.2 % (11.5-14.0); TOTAL CELLS COUNTED % (AUTO) 100 %; WHITE BLOOD COUNT 12.2 10^3/uL (4.0-10.5)
[2019-04-22] MEDS ORDERED: FENTANYL CITRATE INJ/PF 100 MCG/2 ML AMPUL IV ONE (08:37)
--- NOTE | 2019-04-22 08:38 | ER Document Report ---
ED GI/ - General Chief Complaint: Nausea/Vomiting/Diarrhea Stated Complaint: ABDOMINAL PAIN Time Seen by Provider: 04/22/19 08:10 Mode of Arrival: Ambulatory Information source: Patient Notes: Patient presents with a 3-day history of nausea vomiting diarrhea and abdominal pain. Patient states abdominal pain started first. Patient denies any fever or urinary symptoms. Patient states she did take Imodium and has not had any additional diarrhea although the pain has persisted. TRAVEL OUTSIDE OF THE [place] IN LAST 30 DAYS: No - HPI Patient complains to provider of: Abdominal pain, Diarrhea, Vomiting Onset: Other - 3 days Timing/Duration: Persistent Quality of pain: Cramping, Sharp Pain Level: 5 Location: Other - generalized abdomen, epigastric area Vaginal bleeding (Compared to normal period): None Associated symptoms: Diarrhea, Nausea, Vomiting. denies: Blood in stool, Constipation, Urinary hesitancy, Urinary frequency, Urinary retention, Vaginal discharge Exacerbated by: Denies Relieved by: Denies Similar symptoms previously: No Recently seen / treated by doctor: No - Related Data Allergies/Adverse Reactions: No Known Allergies Allergy (Verified 04/22/19 07:35) Past Medical History - General Information source: Patient - Social History Smoking Status: Never Smoker Chew tobacco use (# tins/day): No Frequency of alcohol use: None Drug Abuse: None Occupation: none Lives with: Spouse/Significant other Family History: Reviewed & Not Pertinent Patient has suicidal ideation: No Patient has homicidal ideation: No Renal/ Medical History: Reports: Hx Ectopic . Denies: Hx Peritoneal Dialysis Malignancy Medical History: Reports: Hx Cervical Cancer - Told 30 yrs ago she had cervical cancer, had partial hyst, removed ovaries Psychiatric Medical History: Reports: Hx Bipolar Disorder - controlled without medication Past Surgical History: Reports: Hx Abdominal Surgery - Bilateral Salpingo- oophorectomy, Hx Hysterectomy, Hx Ileostomy Review of Systems - Review of Systems Constitutional: No symptoms reported. denies: Fever, Recent illness EENT: No symptoms reported Cardiovascular: No symptoms reported Respiratory: No symptoms reported. denies: Cough, Short of breath Gastrointestinal: Abdominal pain, Diarrhea, Nausea, Vomiting. denies: Blood streaked bowels Genitourinary: No symptoms reported. denies: Dysuria, Flank pain Female Genitourinary: No symptoms reported Musculoskeletal: No symptoms reported Skin: Rash - to lips Hematologic/Lymphatic: No symptoms reported Neurological/Psychological: No symptoms reported Physical Exam - Vital signs Vitals: Temp Pulse Resp BP Pulse Ox 97.9 F 62 20 128/83 H 99 04/22/19 07:22 04/22/19 07:22 04/22/19 07:22 04/22/19 07:22 04/22/19 07:22 - General General appearance: Alert, Anxious In distress: None - HEENT Head: Normocephalic, Atraumatic Eyes: Normal Conjunctiva: Normal Nasal: Normal Mouth/Lips: Normal Mucous membranes: Other - crusted skin lesions to lips Neck: Normal, Supple - Respiratory Respiratory status: No respiratory distress Chest status: Nontender Breath sounds: Normal. No: Rales, Rhonchi, Stridor, Wheezing Chest palpation: Normal - Cardiovascular Rhythm: Regular Heart sounds: S1 appreciated, S2 appreciated - Abdominal Inspection: Normal Distension: No distension Bowel sounds: Normal Tenderness: Tender - Diffuse abdominal tenderness, Guarding Organomegaly: No organomegaly - Back Back: Normal, Nontender. No: CVA tenderness - Extremities General upper extremity: Normal inspection, Nontender, Normal strength General lower extremity: Normal inspection, Nontender, Normal strength - Neurological Neuro grossly intact: Yes Cognition: Normal Patience Coma Scale Eye Opening: Spontaneous Patience Coma Scale Verbal: Oriented [place] Coma Scale Motor: Obeys Commands [place] Coma Scale Total: 15 - Psychological Associated symptoms: Anxious - Skin Skin Temperature: Warm Skin Moisture: Dry Skin Color: Normal Course - Re-evaluation Re-evalutation: 04/22/19 11:54 Patient with no inflammatory findings noted on CT scan. Patient does have incidental UTI with her nausea vomiting diarrhea symptoms. Will culture urine at this time and start patient on antibiotics. Good return precautions discussed with patient. Patient was advised of incidental finding of div erticulosis. Patient presents with abdominal pain without signs of peritonitis or other life-threatening or serious etiology. Patient appears stable for discharge and has been instructed to return immediately if the symptoms worsen in any way. - Vital Signs Vital signs: Temp Pulse Resp BP Pulse Ox 98.0 F 61 18 124/73 98 04/22/19 12:06 04/22/19 12:06 04/22/19 12:06 04/22/19 12:06 04/22/19 12:06 - Laboratory Result Diagrams: 04/22/19 07:57 04/22/19 07:57 Laboratory results interpreted by me: 04/22/19 04/22/19 04/22/19 07:57 07:57 07:57 WBC 12.2 H Plt Count 458 H Absolute Neuts (auto) 8.3 H Potassium 3.5 L Glucose 115 H Calcium 10.5 H Total Protein 9.4 H Albumin 5.3 H Urine Protein 30 H Urine Ketones 20 H Urine Blood MODERATE H Ur Leukocyte Esterase MODERATE H 04/22/19 11:54 Labs- Entire Visit 04/22/19 04/22/19 04/22/19 07:57 07:57 07:57 WBC 12.2 H RBC 4.90 Hgb 14.6 Hct 42.3 MCV 86 MCH 29.7 MCHC 34.4 RDW 13.2 Plt Count 458 H Lymph % (Auto) 25.8 [place] % (Auto) 5.1 Eos % (Auto) 0.5 Baso % (Auto) 0.6 Absolute Neuts (auto) 8.3 H Absolute Lymphs (auto) 3.1 Absolute Monos (auto) 0.6 Absolute Eos (auto) 0.1 Absolute Basos (auto) 0.1 Seg Neutrophils % 68.0 Sodium 142.8 Potassium 3.5 L Chloride 104 Carbon Dioxide 23 Anion Gap 16 BUN 20 Creatinine 0.67 Est GFR ( Amer) > 60 Est GFR (MDRD) Non-Af > 60 Glucose 115 H Calcium 10.5 H Total Bilirubin 1.0 Direct Bilirubin 0.3 Neonat Total Bilirubin Not Reportable Neonat Direct Bilirubin Not Reportable Neonat Indirect Bili Not Reportable AST 31 ALT 25 Alkaline Phosphatase 110 Total Protein 9.4 H Albumin 5.3 H Lipase 153.5 Urine Color Urine Appearance Urine pH Ur Specific [place] Urine Protein Urine Glucose (UA) Urine Ketones Urine Blood Urine Nitrite Urine Bilirubin Urine Urobilinogen Ur Leukocyte Esterase Urine WBC (Auto) Urine Bacteria (Auto) Urine Mucus (Auto) Urine Ascorbic Acid 04/22/19 07:57 WBC RBC Hgb Hct MCV MCH MCHC RDW Plt Count Lymph % (Auto) [place] % (Auto) Eos % (Auto) Baso % (Auto) Absolute Neuts (auto) Absolute Lymphs (auto) Absolute Monos (auto) Absolute Eos (auto) Absolute Basos (auto) Seg Neutrophils % Sodium Potassium Chloride Carbon Dioxide Anion Gap BUN Creatinine Est GFR ( Amer) Est GFR (MDRD) Non-Af Glucose Calcium Total Bilirubin Direct Bilirubin Neonat Total Bilirubin Neonat Direct Bilirubin Neonat Indirect Bili AST ALT Alkaline Phosphatase Total Protein Albumin Lipase Urine Color YELLOW Urine Appearance TURBID Urine pH 5.0 Ur Specific [place] 1.025 Urine Protein 30 H Urine Glucose (UA) NEGATIVE Urine Ketones 20 H Urine Blood MODERATE H Urine Nitrite NEGATIVE Urine Bilirubin NEGATIVE Urine Urobilinogen NEGATIVE Ur Leukocyte Esterase MODERATE H Urine WBC (Auto) 30 Urine Bacteria (Auto) 3+ Urine Mucus (Auto) MANY Urine Ascorbic Acid NEGATIVE - Diagnostic Test Radiology reviewed: Reports reviewed Discharge - Discharge Clinical Impression: Abdominal pain Qualifiers: Abdominal location: unspecified location Qualified Code(s): R10.9 - Unspecified abdominal pain Nausea and vomiting Qualifiers: Vomiting type: unspecified Vomiting Intractability: non-intractable Qualified Code(s): R11.2 - Nausea with vomiting, unspecified Diarrhea Qualifiers: Diarrhea type: unspecified type Qualified Code(s): R19.7 - Diarrhea, unspecified UTI (urinary tract infection) Qualifiers: Urinary tract infection type: site unspecified Hematuria presence: with hematuria Qualified Code(s): N39.0 - Urinary tract infection, site not specified Condition: Stable Disposition: HOME, SELF-CARE Instructions: Urinary Tract Infection ([facility]) Additional Instructions: Return immediately for any new or worsening symptoms Followup with your primary care provider, call tomorrow to make a followup appointment Urine culture is pending, we will call if you need any different treatment VOMITING: Vomiting (or nausea without vomiting) can be caused by many other different problems. It can mean that something's wrong with the stomach, such as ulcers or inflammation or the intestinal tract, such as appendicitis. But it can also be a symptom of a problem that has nothing to do with the stomach or intestines. Vomiting is common with severe headaches, earaches, tonsillitis, and kidney infections, etc. We see it with pneumonia or heart attacks. Drugs can cause nausea and vomiting. Many abdominal problems cause vomiting; for example, gallstones, kidney stones, pancreatitis, and intestinal obstruction (blocked bowels). In most cases, curing the vomiting depends on fixing the problem that caused it. For temporary relief, we may use an anti-nausea medicine. For home use, we can prescribe suppositories, chewable pills, pills that dissolve in the mouth, or liquid anti-nausea drugs. If the vomiting seems to be caused by a problem in the stomach, acid-suppressing drugs may be prescribed as well. It's important to avoid dehydration. Sip small amounts of clear liquids (soft drinks, tea, broth, etc) . Try to take fluids frequently even if you are vomiting to prevent dehydration. Take increasing amounts of fluid and when liquids are being consumed successfully, advance to small amounts of bland food (toast, soups, mashed potatoes, etc.) until you are able to resume a regular diet. Avoid aspirin, tobacco, and alcohol. If the vomiting worsens, if the problem that's making you vomit worsens, or if there's evidence of bleeding in the stomach (such as black, tarry stool, or bloody or black vomit), you should return immediately. Also, return if abdominal pain worsens or becomes localized to one area or you develop high fever. Call your doctor if you aren't improved in 24 hours. DIARRHEA, NON-SPECIFIC: Diarrhea means frequent, watery stools. There are many causes. Any problem that keeps the intestinal tract from absorbing water from the stool can lead to diarrhea. A sudden new diarrhea problem is usually caused by a virus, food sensitivity, toxic bacteria, or drugs. In this case, we expect the problem to go away soon. Testing is done only if you seem seriously ill from the diarrhea. If you have chronic diarrhea, or diarrhea that keeps coming back, we need to find out why. Chronic diarrhea can be due to inflammation of the bowels such as Crohn's disease or ulcerative colitis, food sensitivity such as intolerance to lactose or wheat protein, irritable bowel syndrome, and other problems. If your diarrhea is a significant problem but it's not clear why you have it, we'll refer you to a specialist for further testing. During an episode of diarrhea, drink small amounts (two to six ounces) of clear liquids (soft drinks, sport drinks, herb teas, broth, etc). Take fluids frequently to prevent dehydration. It's usually not a problem to take mild anti- diarrhea medication such as Kaopectate or Pepto-Bismol. As the diarrhea eases, advance to small amounts of bland food (mashed potato, toast) for 24 hours. Call the physician if blood appears in your vomit or stool, if vomiting lasts longer than 24 hours, if the abdominal pain worsens or becomes localized to one area, if you develop high fever, or if you become lightheaded and weak. VIRAL SYNDROME: The physician has diagnosed a viral infection. Viruses not only cause "colds," but can cause many different symptoms including generalized aching, fever, headache, cough, diarrhea, nausea, vomiting, and fatigue. The treatment, for the most part, is simply relief of symptoms. This means that antibiotics are usually not given. Rest, fluids, pain medications and, occasionally, medication for the specific symptoms that are most bothersome will be prescribed. Use good handwashing to avoid passing the virus to others. Shared toys should be cleaned with disinfectant. Clean the toilets, sinks, and counter surfaces in bathrooms. Launder clothing in hot water. Contact the physician if you develop any new or unusual symptoms such as s evere headache, stiff neck, high fever, chest pain, productive cough, or shortness of breath. You should be rechecked if you don't see marked improvement within seven to 10 days. INTRAVENOUS (I V) FLUIDS: As part of your care today, you received intravenous (IV) fluids. IV fluids are administered to patients who are dehydrated or to those who have certain chemical (electrolyte) abnormalities that need correcting. ANTINAUSEA MEDICATION: You have been given a medication to suppress nausea and vomiting. This type of medication can be given as a shot, pill, or suppository. It will usually last for many hours. Pills and shots usually last six to eight hours. For the typical illness, only one or two doses of the medication may be necessary. Mild lightheadedness may occur. This type of medicine can cause drowsiness. Do not drive or operate dangerous machinery while under its influence. Do not mix with alcohol. See your doctor at once if you have muscle spasms or tightness, or uncontrollable motions (particularly of the neck, mouth, or jaw). Persistent vomiting or severe lightheadedness should also be evaluated by the physician. FOLLOW-UP CARE: If you have been referred to a physician for follow-up care, call the physicians office for an appointment as you were instructed or within the next two days. If you experience worsening or a significant change in your symptoms, notify the physician immediately or return to the Emergency Department at any ti me for re-evaluation. Prescriptions: Dicyclomine HCl [Bentyl 20 mg Tablet] 20 mg PO QID PRN #12 tablet PRN Reason: Cephalexin Monohydrate [Keflex 500 mg Capsule] 500 mg PO BID 7 Days #20 capsule Ondansetron [Zofran Odt 4 mg Tablet] 1 tab PO Q6H #15 tab.rapdis
[2019-04-22 08:43] LABS: ALBUMIN 5.3 g/dL (3.5-5.0); ALKALINE PHOSPHATASE 110 U/L (38-126); ANION GAP 16 (5-19); ASPARTATE AMINO TRANSFERASE 31 U/L (14-36); BILIRUBIN,DIRECT 0.3 mg/dL (0.0-0.4); BLOOD UREA NITROGEN 20 mg/dL (7-20); CALCIUM 10.5 mg/dL (8.4-10.2); CARBON DIOXIDE 23 mmol/L (22-30); CHLORIDE 104 mmol/L (98-107); GLUCOSE 115 mg/dL (75-110); POTASSIUM 3.5 mmol/L (3.6-5.0); TOTAL PROTEIN 9.4 g/dL (6.3-8.2)
[2019-04-22 09:08] LABS: APPEARANCE,URINE TURBID; BILIRUBIN,URINE NEGATIVE (NEGATIVE); COLOR,URINE YELLOW; GLUCOSE, URINE NEGATIVE (NEGATIVE); KETONES,URINE 20 mg/dL (NEGATIVE); LEUKOCYTE ESTERASE,URINE MODERATE (NEGATIVE); NITRITE,URINE NEGATIVE (NEGATIVE); PROTEIN,URINE 30 mg/dL (NEGATIVE); URINE SPECIFIC GRAVITY 1.025; UROBILINOGEN,URINE NEGATIVE mg/dL (<2.0)
[2019-04-22] MEDS ORDERED: MORPHINE SULFATE 10 MG/ML INJ IV ONE (09:55)
[2019-04-22] MEDS ORDERED: CEFTRIAXONE 1 GM/D5W RTU 1 GM/50 ML RTUPB IV ONE (09:56)
--- NOTE | 2019-04-22 11:45 | RADIOLOGY REPORT (SQ) ---
EXAM DESCRIPTION: CT ABD/PELVIS WITH IV ORAL COMPLETED DATE/TIME: 04/22/2019 11:11 am REASON FOR STUDY: abd pain, n/v/d COMPARISON: 2016 TECHNIQUE: CT scan of the abdomen performed with intravenous and with oral contrast using helical sc anning technique with dynamic intravenous contrast injection. Images reviewed with lung, soft tissue, and bone windows. Reconstructed coronal and sagittal MPR images reviewed. Delayed images for evaluat ion of the urinary system also acquired and evaluated. All images stored on PACS. All CT scanners at this facility use dose modulation, iterative reconstruc tion, and/or weight based dosing when appropriate to reduce radiation dose to as low as reasonably ac hievable (ALARA). [facility]: Dose Right [facility]: CareDose [facility]: Dose Right [facility]: Teradose 4D [facility]: Gamma [employer] CONTRAST TYPE AND DOSE: contrast/concentration: Isovue 350.00 mg/ml; Total Contrast Delivered: 64.0 ml; Total Saline Delivered: 65.0 ml RENAL FUNCTION: GFR > 60. RADIATION DOSE: CT Rad equipment meets quality standard of care and radiation dose reduction techniq ues were employed. CTDIvol: 4.8 - 5.5 mGy. DLP: 515 mGy-cm. . LIMITATIONS: None. FINDINGS: LOWER CHEST: No significant findings. No nodules or infiltrates. LIVER: Normal size. No masses. No dilated ducts. SPLEEN: Normal size. No focal lesions. PANCREAS: No masses. No significant calcifications. No adjacent inflammation or peripancreatic fluid collections. Pancreatic duct not dilated. GALLBLADDER: No identified stones by CT criteria. No inflammatory changes to suggest cholecystitis. ADRENAL GLANDS: No significant masses or asymmetry. RIGHT KIDNEY AND URETER: Cyst. No significant calcifications. No hydronephrosis or hydroureter. LEFT KIDNEY AND URETER: Cysts. No significant calcifications. No hydronephrosis or hydroureter. AORTA AND VESSELS: No aneurysm. No dissection. Renal arteries, SMA, celiac without stenosis. RETROPERITONEUM: No retroperitoneal adenopathy, hemorrhage or masses. BOWEL AND PERITONEAL CAVITY: Generalize diverticulosis particular sigmoid. No diverticulitis. APPENDIX: Not visualized. ABDOMINAL WALL: No masses. No hernias. BONES: No significant or acute findings. OTHER: No other significant finding. IMPRESSION: Diverticulosis. No acute abnormality. TECHNICAL DOCUMENTATION: JOB ID: [id number] Quality ID # [id number]: Final reports with documentation of one or more dose reduction techniques (e.g., Au tomated exposure control, adjustment of the mA and/or kV according to patient size, use of iterative reconstruction technique) 2010 [employer]- All Rights Reserved Reading location - IP/workstation name: [email or web address]
[2019-04-22 12:08] VITALS: BP 124/73
== END 2019-04-22 12:11 | disposition home or self-care (01) ==
LOC: ER 07:18
DX: N39.0 Urinary tract infection, site not specified (principal); R11.2 Nausea with vomiting, unspecified; R19.7 Diarrhea, unspecified; R10.84 Generalized abdominal pain
CPT/HCPCS: 99284; 96361; 96375; 96365; 36415; 87086; 83690; 85025; 87088; 80053; 81001; 87186; 74177; J3010; J2270; J2405; J7030; J0696

== ENCOUNTER 2019-05-17 12:25 | Emergency (ER) | payer OTHER ==
[2019-05-17] MEDS ORDERED: ONDANSETRON HCL INJ/PF 4 MG/2 ML SDV IV ONE (12:36)
[2019-05-17] MEDS ORDERED: MORPHINE SULFATE 10 MG/ML INJ IV ONE (12:36)
[2019-05-17] MEDS ORDERED: NORMAL SALINE 1000 ML 1,000 ML IV ONE (12:36)
--- NOTE | 2019-05-17 12:38 | ER Document Report ---
ED Medical Screen (RME) - General Chief Complaint: Abdominal Pain Stated Complaint: ABDOMINAL PAIN Time Seen by Provider: 05/17/19 12:35 Mode of Arrival: Ambulatory Information source: Patient Notes: 58-year-old female patient with history of diverticulosis presenting to the emergency department with complaints of acute lower abdominal pain. Patient reports pain across the entire low abdomen with nausea and persistent diarrhea. She denies any fevers. She states she was here for similar symptoms a few weeks ago. Patient crunched over moaning in pain, unable to do an abdominal exam at this time in triage. I have greeted and performed a rapid initial assessment of this patient. A comprehensive ED assessment and evaluation of the patient, analysis of test results and completion of the medical decision making process will be conducted by additional ED providers. I have specifically instructed the patient or family members with the patient to immediately return to any nursing staff should anything change in the patient's condition or with their chief complaint. TRAVEL OUTSIDE OF THE [place] IN LAST 30 DAYS: No - Related Data Allergies/Adverse Reactions: No Known Allergies Allergy (Verified 05/17/19 12:35) Past Medical History Renal/ Medical History: Reports: Hx Ectopic . Denies: Hx Peritoneal Dialysis Malignancy Medical History: Reports: Hx Cervical Cancer - Told 30 yrs ago she had cervical cancer, had partial hyst, removed ovaries Psychiatric Medical History: Reports: Hx Bipolar Disorder - controlled without medication Past Surgical History: Reports: Hx Abdominal Surgery - Bilateral Salpingo- oophorectomy, Hx Hysterectomy, Hx Ileostomy Physical Exam - Vital signs Vitals: Temp Pulse Resp BP Pulse Ox 98.6 F 86 22 H 156/93 H 97 05/17/19 12:05/17/19 12:05/17/19 12:05/17/19 12:31 05/17/19 12:31 Course - Vital Signs Vital signs: Temp Pulse Resp BP Pulse Ox 98.6 F 86 22 H 156/93 H 97 05/17/19 12:05/17/19 12:05/17/19 12:05/17/19 12:05/17/19 12:31
[2019-05-17 13:06] LABS: ABSOLUTE BASOPHILS # (AUTO) 0.1 10^3/uL (0.0-0.2); ABSOLUTE LYMPHOCYTES (AUTO) 2.8 10^3/uL (0.5-4.7); ABSOLUTE MONOCYTES (AUTO) 0.5 10^3/uL (0.1-1.4); ABSOLUTE NEUT (AUTO) 4.3 10^3/uL (1.7-8.2); BASOPHILS % (AUTO) 1.5 % (0-2); EOSINOPHILS % (AUTO) 0.2 % (0-6); HEMATOCRIT 38.2 % (36.0-47.0); HEMOGLOBIN 13.7 g/dL (12.0-15.5); LYMPHOCYTES % (AUTO) 36.1 % (13-45); MEAN CORPUSCULAR HEMOGLOBIN 30.6 pg (27.0-33.4); MEAN CORPUSCULAR HGB CONC 35.8 g/dL (32.0-36.0); MEAN CORPUSCULAR VOLUME 86 fl (80-97); PLATELET COUNT 445 10^3/uL (150-450); RED BLOOD COUNT 4.46 10^6/uL (3.72-5.28); RED CELL DISTRIBUTION WIDTH 13.1 % (11.5-14.0); SEGMENTED NEUTROPHILS % (AUTO) 56.2 % (42-78); TOTAL CELLS COUNTED % (AUTO) 100 %; WHITE BLOOD COUNT 7.6 10^3/uL (4.0-10.5)
[2019-05-17 13:26] LABS: ALBUMIN 4.8 g/dL (3.5-5.0); ALKALINE PHOSPHATASE 98 U/L (38-126); ANION GAP 12 (5-19); ASPARTATE AMINO TRANSFERASE 21 U/L (14-36); BLOOD UREA NITROGEN 12 mg/dL (7-20); CALCIUM 9.8 mg/dL (8.4-10.2); CARBON DIOXIDE 26 mmol/L (22-30); CHLORIDE 104 mmol/L (98-107); GLUCOSE 118 mg/dL (75-110); POTASSIUM 3.4 mmol/L (3.6-5.0); TOTAL PROTEIN 8.4 g/dL (6.3-8.2)
--- NOTE | 2019-05-17 14:41 | ER Document Report ---
ED GI/ - General Chief Complaint: Lower Abdominal Pain Stated Complaint: ABDOMINAL PAIN Time Seen by Provider: 05/17/19 12:35 Primary Care Provider: [facility] [Provider Group] - Follow up as needed [facility] [Provider Group] - Follow up as needed EVE LEBRON MD [ACTIVE STAFF] - Follow up in 1 week Mode of Arrival: Ambulatory Notes: Patient is a 58-year-old female who presents emergency department with a chief complaint of abdominal pain. Patient states that her pain is in her left lower quadrant and sometimes in her left upper quadrant. Pain started 5 days ago patient has a history of diverticulosis. She also was treated for urinary tract infection about a month ago. Patient states that her symptoms got better. Patient denies any dysuria. TRAVEL OUTSIDE OF THE [place] IN LAST 30 DAYS: No - Related Data Allergies/Adverse Reactions: No Known Allergies Allergy (Verified 05/17/19 12:35) Home Medications: denies Past Medical History - General Information source: Patient - Social History Smoking Status: Never Smoker Chew tobacco use (# tins/day): No Frequency of alcohol use: None Drug Abuse: None Family History: Reviewed & Not Pertinent Patient has suicidal ideation: No Patient has homicidal ideation: No Renal/ Medical History: Reports: Hx Ectopic . Denies: Hx Peritoneal Dialysis Malignancy Medical History: Reports: Hx Cervical Cancer - Told 30 yrs ago she had cervical cancer, had partial hyst, removed ovaries Psychiatric Medical History: Reports: Hx Bipolar Disorder - controlled without medication Past Surgical History: Reports: Hx Abdominal Surgery - Bilateral Salpingo-oopho rectomy, Hx Hysterectomy, Hx Ileostomy, Hx Tubal Ligation Review of Systems - Review of Systems Notes: REVIEW OF SYSTEMS: CONSTITUTIONAL : Denies recent illness. Denies recent unintentional weight loss. Denies fever, chills, or sweats. EENT: Denies eye, ear, throat, or mouth pain, discharge, or symptoms. Denies nasal or sinus congestion. CARDIOVASCULAR: Denies chest pain. RESPIRATORY: Denies shortness of breath, cough, congestion, difficulty breathing, or wheezing. GASTROINTESTINAL: See HPI. GENITOURINARY: Denies difficulty urinating, burning, blood in urine, urgency or frequency. MUSCULOSKELETAL: Denies neck and back pain. Denies joint pain or swelling. SKIN: Denies rash, itchiness, or lesions HEMATOLOGIC : Denies easy bruising or bleeding. LYMPHATIC: Denies swollen, painful, enlarged glands. NEUROLOGICAL: Denies no numbness or tingling denies weakness. Denies headache. Denies altered mental status. Denies alteration in speech. PSYCHIATRIC: Denies stress, anxiety, alteration in sleep patterns, or depression. All other systems reviewed and negative. Physical Exam - Vital signs Vitals: Temp Pulse Resp BP Pulse Ox 98.6 F 86 22 H 156/93 H 97 05/17/19 12:31 05/17/19 12:05/17/19 12:05/17/19 12:05/17/19 12:31 - Notes Notes: PHYSICAL EXAMINATION: GENERAL: Appears well, healthy, well-nourished, no acute distress. HEAD: Normocephalic, atraumatic. EYES: PERRL, conjunctiva normal, all extraocular movements intact, sclera nonicteric ENT: Dry mucous membranes. NECK: Supple, no noticeable swelling, redness, rash. Normal range of motion. LUNGS: Equal breath sounds bilaterally and clear to auscultation. No wheezes rales or rhonchi. CARDIOVASCULAR: S1-S2, regular rate, regular rhythm. Radial pulses 2+, normal. ABDOMEN: Normoactive bowel sounds. Soft, and her left lower quadrant, no guarding, no rebound tenderness, and no masses palpated. EXTREMITIES: Normal strength and range of motion, no pitting or edema. No cyanosis. NEUROLOGICAL: Moves all extremities upon command. Strength 5/5 in all extremities. PSYCH: Normal mood, normal affect. SKIN: Warm, dry. No rash, lesions, ulcerations noted. Normal skin turgor. Course - Re-evaluation Re-evalutation: 05/17/19 15:54 Hematology is unremarkable. Potassium is slightly low. We will give her 40 M EQ's of potassium orally. Urinalysis shows a small amount of leukocytes and 11 WBCs. Urine culture will be sent. Patient will be started on Keflex. She will follow-up with [facility]. CT of the abdomen pelvis show diverticulosis, but no diverticulitis. Very low suspicion for appendicitis. F ollow-up precautions were given. Verbal discharge instructions were given to the patient. They verbalized understanding. They are stable for discharge. - Vital Signs Vital signs: Temp Pulse Resp BP Pulse Ox 98.2 F 75 16 148/83 H 99 05/17/19 16:32 05/17/19 16:32 05/17/19 16:32 05/17/19 16:32 05/17/19 16:32 - Laboratory Result Diagrams: 05/17/19 12:52 05/17/19 12:52 Laboratory results interpreted by me: 05/17/19 05/17/19 12:52 14:25 Potassium 3.4 L Glucose 118 H Total Protein 8.4 H Urine Ketones 20 H Urine Blood SMALL H Ur Leukocyte Esterase SMALL H Discharge - Discharge Clinical Impression: Diverticulosis Abdominal pain Qualifiers: Abdominal location: lower abdomen, unspecified Qualified Code(s): R10.30 - Lower abdominal pain, unspecified Condition: Stable Disposition: HOME, SELF-CARE Additional Instructions: You are seen today in the emergency department for abdominal pain. You are being started on antibiotics for urinary tract infection. Your urine was sent for culture. Please follow-up with 1 of the clinics below. You also have diverticulosis. Please follow-up with gastroenterology. Prescriptions: Dicyclomine HCl [Bentyl 20 mg Tablet] 20 mg PO QID #40 tablet Cephalexin [Keflex] 500 mg PO BID #14 capsule Ondansetron [Zofran Odt 4 mg Tablet] 1 - 2 tab PO Q4H PRN #30 tab.rapdis PRN Reason: For Nausea/Vomiting Referrals: [facility] [Provider Group] - Follow up as needed [facility] [Provider Group] - Follow up as needed EVE LEBRON MD [ACTIVE STAFF] - Follow up in 1 week
[2019-05-17 14:42] LABS: APPEARANCE,URINE CLEAR; BILIRUBIN,URINE NEGATIVE (NEGATIVE); COLOR,URINE STRAW; GLUCOSE, URINE NEGATIVE (NEGATIVE); KETONES,URINE 20 mg/dL (NEGATIVE); LEUKOCYTE ESTERASE,URINE SMALL (NEGATIVE); NITRITE,URINE NEGATIVE (NEGATIVE); PROTEIN,URINE NEGATIVE (NEGATIVE); URINE SPECIFIC GRAVITY 1.004; UROBILINOGEN,URINE NEGATIVE mg/dL (<2.0)
--- NOTE | 2019-05-17 15:32 | RADIOLOGY REPORT (SQ) ---
EXAM DESCRIPTION: CT ABD/PELVIS WITH IV ONLY IMAGES COMPLETED DATE/TIME: 05/17/2019 2:09 pm REASON FOR STUDY: LLQ abd pain; eval diverticulitis? COMPARISON: CT abdomen and pelvis, 04/22/2019 TECHNIQUE: CT scan of the abdomen and pelvis performed using helical scanning technique with dynamic intravenous contrast injection. No oral contrast. Images reviewed with lung, soft tissue, and bone windows. Reconstructed coronal and sagittal MPR images reviewed. Delayed images for evaluation of the urinary system also acquired. All images stored on PACS. All CT scanners at this facility use dose modulation, iterative reconstruction, and/or weight based d osing when appropriate to reduce radiation dose to as low as reasonably achievable (ALARA). [facility]: Dose Right [facility]: CareDose [facility]: Dose Right [facility]: Teradose 4D [facility]: LTN [employer] CONTRAST TYPE AND DOSE: contrast/concentration: Isovue 350.00 mg/ml; Total Contrast Delivered: 62.0 ml; Total Saline Delivered: 65.0 ml RENAL FUNCTION: GFR > 60. RADIATION DOSE: CT Rad equipment meets quality standard of care and radiation dose reduction techniq ues were employed. CTDIvol: 4.9 - 5.8 mGy. DLP: 519 mGy-cm.. LIMITATIONS: None. FINDINGS: LOWER CHEST: No significant findings. No nodules or infiltrates. LIVER: Normal size. No masses. No dilated ducts. SPLEEN: Normal size. No focal lesions. PANCREAS: No masses. No significant calcifications. No adjacent inflammation or peripancreatic fluid collections. Pancreatic duct not dilated. GALLBLADDER: No identified stones by CT criteria. No inflammatory changes to suggest cholecystitis. ADRENAL GLANDS: No significant masses or asymmetry. RIGHT KIDNEY AND URETER: Tiny cysts are unchanged. No solid mass. No significant calcifications. No hydronephrosis or hydroureter. LEFT KIDNEY AND URETER: Tiny cysts are unchanged. No solid mass. No significant calcifications. No hydronephrosis or hydroureter. AORTA AND VESSELS: No aneurysm. No dissection. Renal arteries, SMA, celiac without stenosis. RETROPERITONEUM: No retroperitoneal adenopathy, hemorrhage or masses. BOWEL AND PERITONEAL CAVITY: There is extensive sigmoid diverticulosis without evidence of diverticul itis. No bowel obstruction. No bowel wall thickening. No significant inflammatory change. No asci edison or pneumoperitoneum. APPENDIX: Not visualized PELVIS: Uterus and ovaries have normal size. No adnexal mass. ABDOMINAL WALL: No masses. No hernias. 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 No suspicious bone lesions. OTHER: No other significant finding. IMPRESSION: 1. No acute abnormality in the abdomen or pelvis to explain the patient's pain. 2. Colonic diverticulosis without evidence of diverticulitis. 3. Bilateral renal cortical cysts. TECHNICAL DOCUMENTATION: JOB ID: [id number] Quality ID # [id number]: Final reports with documentation of one or more dose reduction techniques (e.g., Au tomated exposure control, adjustment of the mA and/or kV according to patient size, use of iterative reconstruction technique) 2010 [employer]- All Rights Reserved Reading location - IP/workstation name: [email or web address]
[2019-05-17] MEDS ORDERED: DICYCLOMINE HCL 20 MG TABLET PO ONE (15:58)
[2019-05-17 16:33] VITALS: BP 148/83
== END 2019-05-17 16:38 | disposition home or self-care (01) ==
LOC: ER 12:25
DX: R10.32 Left lower quadrant pain (principal); R10.12 Left upper quadrant pain; K57.30 Diverticulosis of large intestine without perforation or abscess without bleeding; Z87.440 Personal history of urinary (tract) infections
CPT/HCPCS: 99284; 96361; 96374; 96375; 36415; 87086; 83690; 85025; 87088; 80053; 81001; 74177; J3490; J2270; J2405; J7030; 87186

== ENCOUNTER 2019-06-18 06:25 | Emergency (ER) | payer OTHER ==
[2019-06-18 07:44] LABS: ABSOLUTE BASOPHILS # (AUTO) 0.1 10^3/uL (0.0-0.2); ABSOLUTE LYMPHOCYTES (AUTO) 2.2 10^3/uL (0.5-4.7); ABSOLUTE MONOCYTES (AUTO) 0.7 10^3/uL (0.1-1.4); ABSOLUTE NEUT (AUTO) 7.5 10^3/uL (1.7-8.2); BASOPHILS % (AUTO) 0.9 % (0-2); EOSINOPHILS % (AUTO) 0.5 % (0-6); HEMATOCRIT 39.6 % (36.0-47.0); MEAN CORPUSCULAR HEMOGLOBIN 30.4 pg (27.0-33.4); MEAN CORPUSCULAR HGB CONC 35.4 g/dL (32.0-36.0); MEAN CORPUSCULAR VOLUME 86 fl (80-97); MONOCYTES % (AUTO) 6.3 % (3-13); PLATELET COUNT 404 10^3/uL (150-450); RED BLOOD COUNT 4.62 10^6/uL (3.72-5.28); RED CELL DISTRIBUTION WIDTH 13.5 % (11.5-14.0); SEGMENTED NEUTROPHILS % (AUTO) 71.3 % (42-78); TOTAL CELLS COUNTED % (AUTO) 100 %; WHITE BLOOD COUNT 10.4 10^3/uL (4.0-10.5)
[2019-06-18] MEDS ORDERED: KETOROLAC TROMETHAMINE INJ/PF 30 MG/1 ML SDV IV ONE (07:51)
[2019-06-18] MEDS ORDERED: ONDANSETRON HCL INJ/PF 4 MG/2 ML SDV IV ONE (07:51)
[2019-06-18] MEDS ORDERED: NORMAL SALINE 1000 ML 1,000 ML IV ONE (07:51)
[2019-06-18 07:52] LABS: ALBUMIN 4.7 g/dL (3.5-5.0); ALKALINE PHOSPHATASE 99 U/L (38-126); ANION GAP 12 (5-19); ASPARTATE AMINO TRANSFERASE 22 U/L (14-36); BILIRUBIN,TOTAL 0.9 mg/dL (0.2-1.3); BLOOD UREA NITROGEN 14 mg/dL (7-20); CALCIUM 10.1 mg/dL (8.4-10.2); CARBON DIOXIDE 24 mmol/L (22-30); CHLORIDE 102 mmol/L (98-107); GLUCOSE 108 mg/dL (75-110); POTASSIUM 3.9 mmol/L (3.6-5.0); TOTAL PROTEIN 8.2 g/dL (6.3-8.2)
--- NOTE | 2019-06-18 08:06 | ER Document Report ---
Entered by JOHANNA SERRANO SCRIBE 06/18/19 0742 Acting as scribe for:EVIN MATTHEWS MD ED GI/ - General Chief Complaint: Abdominal Pain >50 Stated Complaint: ABDOMINAL PAIN Time Seen by Provider: 06/18/19 07:15 Mode of Arrival: Ambulatory Information source: Patient Notes: This 58 year old female patient presents to the emergency department today with complaints of abdominal pain with associated nausea for the last four days. Patient states for the first 2.5 days she just had diarrhea but since yesterday afternoon she has been "unable to pass anything, even gas". Patient has been seen and treated multiple for similar abdominal pain including here in this ED on on 04/22/19 and 05/17/19, she had unremarkable IV and Oral contrasted CT scans both times and she was put on Keflex both times for E. Coli infected urine which helped her symptoms per history. TRAVEL OUTSIDE OF THE [place] IN LAST 30 DAYS: No - Related Data Allergies/Adverse Reactions: No Known Allergies Allergy (Verified 05/17/19 12:35) Past Medical History - General Information source: Patient - Social History Smoking Status: Never Smoker Cigarette use (# per day): No Frequency of alcohol use: None Drug Abuse: None Lives with: Family Family History: Reviewed & Not Pertinent Patient has homicidal ideation: No Renal/ Medical History: Reports: Hx Ectopic Malignancy Medical History: Reports: Hx Cervical Cancer - Told 30 yrs ago she had cervical cancer, had partial hyst, removed ovaries Psychiatric Medical History: Reports: Hx Bipolar Disorder - controlled without medication Past Surgical History: Reports: Hx Abdominal Surgery - Right Salpingo-oophor ectomy, left salpingoectomy with partial oophorectomy, Hx Appendectomy, Hx Gynecologic Surgery, Hx Hysterectomy, Hx Tubal Ligation Review of Systems - Review of Systems Constitutional: No symptoms reported EENT: No symptoms reported Cardiovascular: No symptoms reported Respiratory: No symptoms reported Gastrointestinal: See HPI, Abdominal pain, Nausea. denies: Vomiting Genitourinary: No symptoms reported Female Genitourinary: No symptoms reported Musculoskeletal: No symptoms reported Skin: No symptoms reported Hematologic/Lymphatic: No symptoms reported Neurological/Psychological: No symptoms reported -: Yes All other systems reviewed and negative Physical Exam - Vital signs Vitals: Temp Pulse Resp BP Pulse Ox 98.1 F 82 13 128/83 H 98 06/18/19 06:28 06/18/19 06:28 06/18/19 06:28 06/18/19 06:28 06/18/19 06:28 Interpretation: Normal - General General appearance: Appears well, Alert - HEENT Head: Normocephalic, Atraumatic Eyes: Normal Pupils: PERRL - Respiratory Respiratory status: No respiratory distress Chest status: Nontender Breath sounds: Normal Chest palpation: Normal - Cardiovascular Rhythm: Regular Heart sounds: Normal auscultation Murmur: No - Abdominal Distension: No distension Bowel sounds: Normal Tenderness: Tender - suprapubic and pelvic tenderness with palpation Organomegaly: No organomegaly - Back Back: Normal, Nontender - Extremities General upper extremity: Normal inspection, Nontender, Normal ROM General lower extremity: Normal inspection, Nontender, Normal ROM - Neurological Neuro grossly intact: Yes Cognition: Normal Orientation: AAOx4 Patience Coma Scale Eye Opening: Spontaneous Patience Coma Scale Verbal: Oriented Patience Coma Scale Motor: Obeys Commands [place] Coma Scale Total: 15 Speech: Normal - Psychological Associated symptoms: Normal affect, Normal mood - Skin Skin Temperature: Warm Skin Moisture: Dry Skin Color: Normal Course - Re-evaluation Re-evalutation: 06/18/19 10:45 The patient reports that her presentation today is essentially identical to the last 2 times she came to the emergency room where she had a clean-catch urines done and cultured and contrasted CT scan of the abdomen pelvis. She was ultimately treated with Keflex and dicyclomine and improved both times on those medications. Given that the precise diagnosis is in question today and on his previous 2 visits, we will treat her the same way since it did seem to work previously on both occasions. - Vital Signs Vital signs: Temp Pulse Resp BP Pulse Ox 98.5 F 71 16 107/60 100 06/18/19 10:59 06/18/19 10:59 06/18/19 10:59 06/18/19 10:59 06/18/19 10:59 - Laboratory Result Diagrams: 06/18/19 07:19 06/18/19 07:19 Laboratory results interpreted by me: 06/18/19 08:03 Urine Protein 30 H Urine Ketones 80 H Urine Blood MODERATE H - Diagnostic Test Radiology reviewed: Image reviewed, Reports reviewed - Acute abdominal series shows mildly hyperinflated lungs. Bowel gas pattern unremarkable. Chronic calcifications in the left hemipelvis related to vascular calcifications and diverticula based on CT correlation. No radiographic evidence for acute abdominal disease. Discharge - Discharge Clinical Impression: Abdominal pain Qualifiers: Abdominal location: lower abdomen, unspecified Qualified Code(s): R10.30 - Lower abdominal pain, unspecified Condition: Stable Disposition: HOME, SELF-CARE Additional Instructions: Abdominal Pain There are many causes of abdominal pain. Pain can mean a serious problem requiring surgery (such as appendicitis). It can also be an innocent problem that goes away on its own (such as a viral infection). Often, time must pass to determine the cause of pain. The physician does not feel that hospitalization is necessary, at present. Things may change within the next 24 hours. Call the doctor or come back for re-examination if any problems occur, such as: (1) Pain that becomes more severe, steady, or becomes concentrated in one specific area. Also, pain that is more severe with movement or coughing. (2) Vomiting that persists or becomes more frequent. (3) Blood in the vomitus, urine, or bowel movements. Blood in the stool may have a tarry or black appearance. (4) Shaking chills or fever greater than 100 degrees F. (5) The abdomen becomes more distended or swollen. (6) Bowel movements cease. (7) Failure to improve as expected. Take the medications as prescribed. Drink plenty of cool clear liquids today. Follow-up with a local medical doctor if not improving. RETURN TO THE EMERGENCY ROOM IF ANY NEW OR WORSENING SYMPTOMS. Prescriptions: Dicyclomine HCl [Bentyl 20 mg Tablet] 20 mg PO ASDIR PRN #15 tablet PRN Reason: Abdominal Cramping Cephalexin Monohydrate [Keflex 500 mg Capsule] 500 mg PO QID #28 capsule I personally performed the services described in the documentation, reviewed and edited the documentation which was dictated to the scribe in my presence, and it accurately records my words and actions.
--- NOTE | 2019-06-18 08:14 | RADIOLOGY REPORT (SQ) ---
EXAM DESCRIPTION: ACUTE ABDOMEN SERIES IMAGES COMPLETED DATE/TIME: 06/18/2019 7:57 am REASON FOR STUDY: abd pain, no BM X 2 days COMPARISON: CT from May. NUMBER OF VIEWS: Three views. TECHNIQUE: Frontal chest, supine abdomen and upright/decubitus abdomen radiographic images acquired. LIMITATIONS: None. FINDINGS: CHEST: Lungs mildly hyperinflated but clear. FREE AIR: None. No abnormal gas collections. BOWEL GAS PATTERN: Nonobstructive pattern. No dilated loops or air fluid levels. CALCIFICATIONS: Chronic calcifications in the left hemipelvis, related to vascular calcifications and diverticula based on CT correlation. HARDWARE: None in the abdomen. SOFT TISSUES: No gross mass or suggestion of organomegaly. BONES: No acute fracture. No worrisome bone lesions. OTHER: No other significant finding. IMPRESSION: NO RADIOGRAPHIC EVIDENCE FOR ACUTE ABDOMINAL DISEASE. TECHNICAL DOCUMENTATION: JOB ID: [id number] 2010 [employer]- All Rights Reserved Reading location - IP/workstation name: [email or web address]
[2019-06-18 08:29] LABS: APPEARANCE,URINE CLEAR; BILIRUBIN,URINE NEGATIVE (NEGATIVE); COLOR,URINE YELLOW; GLUCOSE, URINE NEGATIVE (NEGATIVE); KETONES,URINE 80 mg/dL (NEGATIVE); LEUKOCYTE ESTERASE,URINE NEGATIVE (NEGATIVE); NITRITE,URINE NEGATIVE (NEGATIVE); PROTEIN,URINE 30 mg/dL (NEGATIVE); URINE SPECIFIC GRAVITY 1.013; UROBILINOGEN,URINE NEGATIVE mg/dL (<2.0)
[2019-06-18] MEDS ORDERED: DICYCLOMINE HCL 10 MG CAPSULE PO ONE (08:36)
[2019-06-18] MEDS ORDERED: DEXTROSE 5%-LACTATED RINGERS 1,000 ML IV ONE ×2 (08:36→09:46)
[2019-06-18] MEDS ORDERED: FENTANYL CITRATE INJ/PF 100 MCG/2 ML AMPUL IV ONE (08:36)
[2019-06-18] MEDS ORDERED: CEPHALEXIN 500 MG CAPSULE PO ONE (09:47)
[2019-06-18 11:00] VITALS: BP 107/60
== END 2019-06-18 11:00 | disposition home or self-care (01) ==
LOC: ER 06:25
DX: R10.30 Lower abdominal pain, unspecified (principal); R10.819 Abdominal tenderness, unspecified site; R11.0 Nausea; Z85.41 Personal history of malignant neoplasm of cervix uteri; Z90.711 Acquired absence of uterus with remaining cervical stump; Z90.722 Acquired absence of ovaries, bilateral
CPT/HCPCS: 99284; 96361; 51701; 96374; 96375; 36415; 87086; 83690; 85025; 80053; 81001; 74022; J3490; J3010; J1885; J2405; J7121; J7030

== ENCOUNTER 2019-07-09 07:25 | Emergency (ER) | payer OTHER ==
[2019-07-09 07:56] LABS: ABSOLUTE BASOPHILS # (AUTO) 0.1 10^3/uL (0.0-0.2); ABSOLUTE EOSINOPHILS # (AUTO) 0.1 10^3/uL (0.0-0.6); ABSOLUTE LYMPHOCYTES (AUTO) 2.5 10^3/uL (0.5-4.7); ABSOLUTE MONOCYTES (AUTO) 0.4 10^3/uL (0.1-1.4); ABSOLUTE NEUT (AUTO) 6.1 10^3/uL (1.7-8.2); BASOPHILS % (AUTO) 0.9 % (0-2); EOSINOPHILS % (AUTO) 1.1 % (0-6); HEMATOCRIT 41.4 % (36.0-47.0); HEMOGLOBIN 14.2 g/dL (12.0-15.5); LYMPHOCYTES % (AUTO) 27.3 % (13-45); MEAN CORPUSCULAR HEMOGLOBIN 29.5 pg (27.0-33.4); MEAN CORPUSCULAR HGB CONC 34.2 g/dL (32.0-36.0); MEAN CORPUSCULAR VOLUME 86 fl (80-97); MONOCYTES % (AUTO) 4.6 % (3-13); PLATELET COUNT 422 10^3/uL (150-450); RED CELL DISTRIBUTION WIDTH 13.5 % (11.5-14.0); SEGMENTED NEUTROPHILS % (AUTO) 66.1 % (42-78); TOTAL CELLS COUNTED % (AUTO) 100 %; WHITE BLOOD COUNT 9.2 10^3/uL (4.0-10.5)
[2019-07-09 07:58] LABS: APPEARANCE,URINE CLEAR; BILIRUBIN,URINE NEGATIVE (NEGATIVE); COLOR,URINE STRAW; GLUCOSE, URINE NEGATIVE (NEGATIVE); KETONES,URINE NEGATIVE (NEGATIVE); LEUKOCYTE ESTERASE,URINE NEGATIVE (NEGATIVE); NITRITE,URINE NEGATIVE (NEGATIVE); PROTEIN,URINE NEGATIVE (NEGATIVE); URINE SPECIFIC GRAVITY 1.003; UROBILINOGEN,URINE NEGATIVE mg/dL (<2.0)
[2019-07-09] MEDS ORDERED: ONDANSETRON HCL INJ/PF 4 MG/2 ML SDV IV ONE (07:58)
[2019-07-09] MEDS ORDERED: NORMAL SALINE 1000 ML 1,000 ML IV ONE (07:58)
[2019-07-09] MEDS ORDERED: MORPHINE SULFATE 10 MG/ML INJ IV ONE (07:59)
--- NOTE | 2019-07-09 08:01 | ER Document Report ---
ED GI/ - General Chief Complaint: Abdominal Pain Stated Complaint: ABDOMINAL PAIN Time Seen by Provider: 07/09/19 07:48 Primary Care Provider: [facility] [Provider Group] - Follow up as needed Notes: 58-year-old woman presents to the emergency department with a 3-day history of lower abdominal pain, diarrhea, nausea and bloody diarrhea on occasions. She states that she has a history of diverticulosis, denies fever, no dizziness or syncope episodes. 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 TRAVEL OUTSIDE OF THE [place] IN LAST 30 DAYS: No - Related Data Allergies/Adverse Reactions: No Known Allergies Allergy (Verified 07/09/19 08:36) Past Medical History - Social History Smoking Status: Never Smoker Chew tobacco use (# tins/day): No Frequency of alcohol use: None Drug Abuse: None Family History: Reviewed & Not Pertinent Patient has homicidal ideation: No Renal/ Medical History: Reports: Hx Ectopic . Denies: Hx Peritoneal Dialysis Malignancy Medical History: Reports: Hx Cervical Cancer - Told 30 yrs ago she had cervical cancer, had partial hyst, removed ovaries Psychiatric Medical History: Reports: Hx Bipolar Disorder - controlled without medication Past Surgical History: Reports: Hx Abdominal Surgery - Right Salpingo- oophorectomy, left salpingoectomy with partial oophorectomy, Hx Appendectomy, Hx Gynecologic Surgery, Hx Hysterectomy, Hx Ileostomy, Hx Tubal Ligation Review of Systems - Review of Systems Notes: Constitutional: Negative for fever. HENT: Negative for sore throat. Eyes: Negative for visual changes. Cardiovascular: Negative for chest pain. Respiratory: Negative for shortness of breath. Gastrointestinal: + Abdominal pain, + nausea, + diarrhea, no vomiting Genitourinary: Negative for dysuria. Musculoskeletal: Negative for back pain. Skin: Negative for rash. Neurological: Negative for headaches, weakness or numbness. 10 point ROS negative except as marked above and in HPI. Physical Exam - Vital signs Vitals: Temp Pulse Resp BP Pulse Ox 97.9 F 56 L 16 118/81 98 07/09/19 07:28 07/09/19 07:28 07/09/19 07:28 07/09/19 07:28 07/09/19 07:28 - Notes Notes: PHYSICAL EXAMINATION: Physical Exam: General: Well-nourished well-developed 58-year-old woman in moderate distress se condary to abdominal pain and nausea. HEENT: NC/AT, pupils equal round and reactive to light, MM moist,nares clear, oropharynx clear, airway patent Neck: supple, no adenopathy, no masses. Good range of motion Lungs: clear, no wheezing, no rales no rhonchi CVS: Regular rate and rhythm no murmur gallop or rub Abdomen: Soft, active, tenderness in the lower quadrants bilaterally with mild guarding, no rebound, no masses, no hepatosplenomegaly Ext: No edema, clubbing or cyanosis. Neuro: Alert and responsive, moving all 4 extremities on command, cranial nerves intact, no focal findings Skin: Intact no open lesions, no rash PSYCH: Normal mood, normal affect. Course - Re-evaluation Re-evalutation: 07/09/19 09:44 Reviewed the patient's CT scan reveals that she may have mild colitis, there is no elevated white blood cell count and the patient's symptoms have improved significantly with Zofran, fluids, morphine. I discussed with her the need to follow-up with her primary care doctor. We will give her prescriptions for F lagyl, Zofran and Bentyl. The patient states that she does not have health insurance and has not been following up with a clinic. - Vital Signs Vital signs: Temp Pulse Resp BP Pulse Ox 97.9 F 56 L 16 118/81 98 07/09/19 07:46 07/09/19 07:28 07/09/19 07:28 07/09/19 07:28 07/09/19 07:28 - Laboratory Result Diagrams: 07/09/19 07:40 07/09/19 07:40 Laboratory results interpreted by me: 07/09/19 07/09/19 07:40 07:40 Glucose 111 H Total Protein 8.3 H Urine Blood MODERATE H I have reviewed laboratory data and used this information for the treatment decisions regarding the patient. Discharge - Discharge Clinical Impression: Colitis, Nausea Abdominal pain Qualifiers: Abdominal location: left lower quadrant Qualified Code(s): R10.32 - Left lower quadrant pain Condition: Good Disposition: HOME, SELF-CARE Instructions: Antinausea Medication ([facility]), Antispasmodics ([facility]) Additional Instructions: Please take the medications as prescribed, Flagyl, Zofran, Bentyl. Push fluids avoid fried and greasy foods, follow-up with outpatient clinic as noted in the referral. Your symptoms are worsening or if you have other concerns you may return to the emergency department for further evaluation and treatment. HOME CARE INSTRUCTIONS & INFORMATION: Thank you for choosing us for your medical needs. We hope you're satisfied with the care you received. After you leave, you must properly care for your problem and, at the same time, observe its progress. Any condition can change. Some illnesses can change rapidly over hours or days. If your condition worsens, return to the Emergency Department or see your physician promptly. ABOUT YOUR X-RAYS AND EKG'S: If you had an EKG or X-rays taken, they have been read by the Emergency Physician. The X-rays and EKG's will also be read by a Radiologist or Cover Creaser within 24 hours. If discrepancies are noted, you will be notified by telephone. Please be certain the ED has a correct telephone number & address where you can be reached. Also, realize that some fractures or abnormalities do not show up on initial X-rays. If your symptoms continue, see your physician. ABOUT YOUR LABORATORY TEST: If you had laboratory tests, the results have been reviewed by the Emergency Physician. Some test results (for example cultures) may not be available for several days. You will be contacted if any test result shows you need additional treatment. Please be certain the ED has a correct telephone number and address where you can be reached. ABOUT YOUR MEDICATIONS: You will receive instructions on how to take your medicine on the prescription label you receive. Additional information may be provided by the Pharmacy. If you have questions afterwards, call the ED for clarification or further instructions. Some prescribed medications may cause drowsiness. Do not perform tasks such as driving a car or operating machinery without consulting your Pharmacist. If you feel you need a refill of pain medication, your condition will need re-evaluation. Please do not call for a refill of any medication. ABOUT YOUR SIGNATURE: Signature of this document acknowledges to followin. Understanding that you received emergency treatment and that you may be released before al medical problems are known or treated. Please be certain the ED has a correct phone number & address where you can be reached. 2. Acknowledgement that you will arrange for follow-up care as recommended. 3. Authorization for the Emergency Physician to provide information to your follow-up Physician in order to maximize your care. AT ANY TIME, IF YOUR SYMPTOMS CHANGE SIGNIFICANTLY OR WORSEN OR YOU DEVELOP NEW SYMPTOMS, RETURN TO THE EMERGENCY DEPARTMENT IMMEDIATELY FOR RE-EVALUATION. OUR GOAL IS TO PROVIDE EXCELLENT MEDICAL CARE! WE HOPE THAT WE HAVE MET YOUR EXPECTATIONS DURING YOUR EMERGENCY DEPARTMENT VISIT AND THAT YOU FEEL YOU HAVE RECEIVED EXCELLENT CARE! Prescriptions: Dicyclomine HCl [Bentyl 10 mg Capsule] 1 cap PO TID #30 cap Metronidazole [Flagyl 500 mg Tablet] 500 mg PO Q6H #28 tablet Ondansetron [Zofran Odt 4 mg Tablet] 1 - 2 tab PO Q4H PRN #15 tab.rapdis PRN Reason: For Nausea/Vomiting Referrals: [facility] [Provider Group] - Follow up as needed
[2019-07-09 08:14] LABS: ALBUMIN 4.8 g/dL (3.5-5.0); ALKALINE PHOSPHATASE 90 U/L (38-126); ANION GAP 11 (5-19); ASPARTATE AMINO TRANSFERASE 24 U/L (14-36); BILIRUBIN,TOTAL 0.5 mg/dL (0.2-1.3); BLOOD UREA NITROGEN 11 mg/dL (7-20); CARBON DIOXIDE 24 mmol/L (22-30); CHLORIDE 106 mmol/L (98-107); GLUCOSE 111 mg/dL (75-110); POTASSIUM 3.8 mmol/L (3.6-5.0); TOTAL PROTEIN 8.3 g/dL (6.3-8.2)
--- NOTE | 2019-07-09 08:58 | RADIOLOGY REPORT (SQ) ---
EXAM DESCRIPTION: CT ABD/PELVIS WITH IV ONLY IMAGES COMPLETED DATE/TIME: 07/09/2019 8:42 am REASON FOR STUDY: Lower abdominal pain COMPARISON: 05/17/2019 TECHNIQUE: CT scan of the abdomen and pelvis performed using helical scanning technique with dynamic intravenous contrast injection. No oral contrast. Images reviewed with lung, soft tissue, and bone windows. Reconstructed coronal and sagittal MPR images reviewed. Delayed images for evaluation of the urinary system also acquired. All images stored on PACS. All CT scanners at this facility use dose modulation, iterative reconstruction, and/or weight based d osing when appropriate to reduce radiation dose to as low as reasonably achievable (ALARA). [facility]: Dose Right [facility]: CareDose [facility]: Dose Right [facility]: Teradose 4D [facility]: Jotky CONTRAST TYPE AND DOSE: contrast/concentration: Isovue 350.00 mg/ml; Total Contrast Delivered: 59.0 ml; Total Saline Delivered: 65.0 ml RENAL FUNCTION: GFR > 60. RADIATION DOSE: CT Rad equipment meets quality standard of care and radiation dose reduction techniq ues were employed. CTDIvol: 4.8 - 4.9 mGy. DLP: 463 mGy-cm.. LIMITATIONS: None. FINDINGS: LOWER CHEST: No significant findings. No nodules or infiltrates. LIVER: Normal size. No masses. No dilated ducts. SPLEEN: Normal size. No focal lesions. PANCREAS: No masses. No significant calcifications. No adjacent inflammation or peripancreatic fluid collections. Pancreatic duct not dilated. GALLBLADDER: No identified stones by CT criteria. No inflammatory changes to suggest cholecystitis. ADRENAL GLANDS: No significant masses or asymmetry. RIGHT KIDNEY AND URETER: No solid masses. No significant calcification. No hydronephrosis or hydroure ter. LEFT KIDNEY AND URETER: No solid masses. No significant calcification. No hydronephrosis or hydrouret er. AORTA AND VESSELS: Atherosclerotic distal aorta. No aneurysm or dissection. No gross arterial occlu ken or venous clot detected. RETROPERITONEUM: No retroperitoneal adenopathy, hemorrhage or masses. BOWEL AND PERITONEAL CAVITY: Sigmoid diverticulosis without active diverticulitis. Mild thick-walled appearance in the ascending and transverse colon which may be due to underdistention. Mild colitis is not excluded. No ascites or abnormal gas. No bowel obstruction. APPENDIX: Normal. PELVIS: No mass. No free fluid. Normal bladder. ABDOMINAL WALL: No masses. No hernias. BONES: No significant or acute findings. OTHER: No other significant finding. IMPRESSION: 1. Slight wall thickening in the proximal half of the colon. Differential is artifact versus mild no nspecific colitis. 2. No other acute or suspicious abdominopelvic abnormality detected. TECHNICAL DOCUMENTATION: JOB ID: [id number] Quality ID # [id number]: Final reports with documentation of one or more dose reduction techniques (e.g., Au tomated exposure control, adjustment of the mA and/or kV according to patient size, use of iterative reconstruction technique) 2010 [employer]- All Rights Reserved Reading location - IP/workstation name: [email or web address]
[2019-07-09] MEDS ORDERED: METHYLPREDNISOLONE INJ 125 MG/2 ML SDV IV ONE (09:43)
[2019-07-09 10:10] VITALS: BP 120/62
== END 2019-07-09 10:13 | disposition home or self-care (01) ==
LOC: ER 07:25
DX: K52.9 Noninfective gastroenteritis and colitis, unspecified (principal); R10.32 Left lower quadrant pain; R10.31 Right lower quadrant pain; R11.0 Nausea; R19.5 Other fecal abnormalities
CPT/HCPCS: 99284; 96361; 96374; 96375; 36415; 83690; 85025; 80053; 81001; 74177; J2930; J2270; J2405; J7030

== ENCOUNTER 2019-07-25 09:36 | Day surgery (SDC) | payer OTHER ==
[2019-07-25] MEDS ORDERED: BUPIVACAINE HCL 0.25 % INJ/PF (2.5 MG/1 ML) 30 ML VIAL ONE (09:47)
[2019-07-25] MEDS ORDERED: HYDROMORPHONE HCL INJ/PF 2 MG/ML AMPULE ONE (12:18)
[2019-07-25] MEDS ORDERED: PROPOFOL INJ 200 MG/20 ML VIAL IV ONE (13:14)
[2019-07-25 15:48] VITALS: BP 131/74
--- NOTE | 2019-07-26 09:55 | Operative Report ---
Operative Report DATE OF SURGERY: 07/25/19 Operative Report: The risks, benefits and alternatives are discussed with the patient in detail she was taken to the OR colonoscopy and EGD formed propofol administered patient had completed colonoscopy to the cecum with a good prep and all segments visualized EGD performed as well PREOPERATIVE DIAGNOSIS: change in kely habits. gerd POSTOPERATIVE DIAGNOSIS: gastritis , s'p biopsy to rule out H.Pylori. Right colon inflammation , biopsy. internal hemorrhhoids. colon polyp with snare polypectomy OPERATION: colonoscopy with snare,. colonoscopy with biopsy. EGD with Biopsy SURGEON: EVE LEBRON ANESTHESIA: LMAC TISSUE REMOVED OR ALTERED: as noted above COMPLICATIONS: none ESTIMATED BLOOD LOSS: none INTRAOPERATIVE FINDINGS: as noted above PROCEDURE: patent tolerated the procedure well no post procedure complications are noted patient is discharged in good condition Discharge date: 07/25/19 Discharge activity and diet are regular follow up in 2-3 weeks surveillance in 3-5 years wait on biopsies patient to call the office or go to ED if needed
[2019-07-28] MEDS ORDERED: BESIFLOXACIN HCL 0.6% OPH SUSP 5 ML BOTTLE OD PRN (05:00)
[2019-07-28] MEDS ORDERED: TETRACAINE HCL 0.5% OPH SOLN 4 ML OD PRN (05:00)
[2019-07-28] MEDS ORDERED: CYCLOPENTOLATE 0.2%/PHENYLEPHRINE 1% OPH SOLN 2 ML OD PRN (05:00)
[2019-07-28] MEDS ORDERED: KETOROLAC TROMETHAMINE 0.45% 4 DROP/0.4 ML DROPERETTE OD PRN (05:00)
[2019-07-28] MEDS ORDERED: DORZOLAMIDE HCL 2%/TIMOLOL MALEAT 0.5% OPH SOLN 10 ML OD PRN (05:00)
[2019-07-28] MEDS ORDERED: TROPICAMIDE 1% OPH SOLN 15 ML OD PRN (05:00)
== END 2019-07-25 14:40 | disposition home or self-care (01) ==
LOC: OROUT 09:36
PROVIDERS: ATTEND Internal Medicine Gastroenterology
DX: K52.9 Noninfective gastroenteritis and colitis, unspecified (principal); D12.5 Benign neoplasm of sigmoid colon; K29.50 Unspecified chronic gastritis without bleeding; K64.8 Other hemorrhoids; K21.9 Gastro-esophageal reflux disease without esophagitis; K57.30 Diverticulosis of large intestine without perforation or abscess without bleeding; I10 Essential (primary) hypertension; D64.9 Anemia, unspecified; Z87.891 Personal history of nicotine dependence; Z79.899 Other long term (current) drug therapy; Z03.818 Encounter for observation for suspected exposure to other biological agents ruled out
CPT/HCPCS: 43239; 45380; 45385; 87635; 88305 ×2; 00813; J1170; J2704; C9803; 813

== ENCOUNTER → 2019-08-09 | Outpatient (CLI) | payer OTHER ==
--- NOTE | 2019-08-09 13:03 | RADIOLOGY REPORT (SQ) ---
EXAM DESCRIPTION: U/S ABDOMEN LIMITED W/O DOP IMAGES COMPLETED DATE/TIME: 08/09/2019 12:43 pm REASON FOR STUDY: R10.11 RIGHT UPPER QUADRANT PAIN R10.11 RIGHT UPPER QUADRANT PAIN COMPARISON: None. TECHNIQUE: Dynamic and static grayscale images acquired of the abdomen and recorded on PACS. Additio nal selected color Doppler and spectral images recorded. LIMITATIONS: None. FINDINGS: PANCREAS: No masses. Visualized pancreatic duct normal caliber. LIVER: The liver measures 12.9 cm in length, normal size. No masses. Echotexture normal. LIVER VASCULATURE: Normal directional flow of the main portal vein and hepatic veins. GALLBLADDER: No stones. Gallbladder wall measures 2.5 mm, normal wall thickness. No pericholecystic fluid. ULTRASOUND-DETECTED PICKENS'S SIGN: Negative. INTRAHEPATIC DUCTS AND COMMON DUCT: CBD measures 4.0 mm in diameter, normal. The intrahepatic ducts normal caliber. No filling defects. INFERIOR VENA CAVA: Normal flow. AORTA: No aneurysm. RIGHT KIDNEY: The right kidney measures 10.0 cm in length, normal size. Normal echogenicity. No kelsi id or suspicious masses. No hydronephrosis. No calcifications. PERITONEAL AND RIGHT PLEURAL SPACE: No ascites or effusions. OTHER: No other significant findings. IMPRESSION: 1. Examination is unremarkable sonographically. TECHNICAL DOCUMENTATION: JOB ID: [id number] 2010 [employer]- All Rights Reserved Reading location - IP/workstation name: [email or web address]
--- NOTE | 2019-08-09 14:29 | RADIOLOGY REPORT (SQ) ---
EXAM DESCRIPTION: NM HIDA SCAN WITH CCK IMAGES COMPLETED DATE/TIME: 08/09/2019 1:58 pm REASON FOR STUDY: R10.11 RIGHT UPPER QUADRANT PAIN R10.11 RIGHT UPPER QUADRANT PAIN COMPARISON: None. RADIONUCLIDE AND DOSE: DOSAGE RADIONUCLIDE: 5.23 millicuries Tc99m Mebrofenin. DOSAGE CCK: 1.0 micrograms. DOSAGE MORPHINE: Not required. The route of agent administration: Intravenous TECHNIQUE: Serial imaging right upper quadrant up to 60 minutes following injection of radionuclide. CCK injected after gallbladder visualized. LIMITATIONS: None. FINDINGS: LIVER: Normal visualization without areas of photopenia. INTRAHEPATIC BILE DUCTS: Normal size and no delay in visualization. COMMON BILE DUCT: Normal without dilatation. GALLBLADDER: Normal visualization. Calculated ejection fraction of 5%. Normal range is greater fredis n 35%. PHYSICAL RESPONSE: Patients presenting complaint were reproduced. OTHER: No other significant finding. IMPRESSION: 1. ABNORMAL STUDY. Gallbladder ejection fraction is 5%(NORMAL GALLBLADDER EJECTION IS G REATER THAN 35%). EVIDENCE FOR BILIARY DYSKINESIS. 2. PATIENT'S SYMPTOMS WERE REPRODUCED FOLLOWING CCK ADMINISTRATION. TECHNICAL DOCUMENTATION: JOB ID: [id number] 2010 [employer]- All Rights Reserved Reading location - IP/workstation name: [email or web address]
== END ==
LOC: RAD 11:02
PROVIDERS: ATTEND Internal Medicine Gastroenterology
DX: K82.8 Other specified diseases of gallbladder (principal); R10.11 Right upper quadrant pain
CPT/HCPCS: 76705; 78227; J2805; A9537; Q9969

== ENCOUNTER 2019-08-12 09:21 | Emergency (ER) | payer OTHER ==
[2019-08-12 10:18] LABS: ABSOLUTE BASOPHILS # (AUTO) 0.1 10^3/uL (0.0-0.2); ABSOLUTE MONOCYTES (AUTO) 0.2 10^3/uL (0.1-1.4); ABSOLUTE NEUT (AUTO) 4.7 10^3/uL (1.7-8.2); BASOPHILS % (AUTO) 1.2 % (0-2); EOSINOPHILS % (AUTO) 0.4 % (0-6); HEMATOCRIT 41.2 % (36.0-47.0); HEMOGLOBIN 14.2 g/dL (12.0-15.5); LYMPHOCYTES % (AUTO) 28.7 % (13-45); MEAN CORPUSCULAR HEMOGLOBIN 30.2 pg (27.0-33.4); MEAN CORPUSCULAR HGB CONC 34.3 g/dL (32.0-36.0); MEAN CORPUSCULAR VOLUME 88 fl (80-97); MONOCYTES % (AUTO) 2.7 % (3-13); PLATELET COUNT 421 10^3/uL (150-450); RED CELL DISTRIBUTION WIDTH 14.1 % (11.5-14.0); TOTAL CELLS COUNTED % (AUTO) 100 %
[2019-08-12 10:33] LABS: APPEARANCE,URINE CLEAR; BILIRUBIN,URINE NEGATIVE (NEGATIVE); COLOR,URINE YELLOW; GLUCOSE, URINE NEGATIVE (NEGATIVE); KETONES,URINE 20 mg/dL (NEGATIVE); LEUKOCYTE ESTERASE,URINE TRACE (NEGATIVE); NITRITE,URINE NEGATIVE (NEGATIVE); PROTEIN,URINE NEGATIVE (NEGATIVE); URINE SPECIFIC GRAVITY 1.011; UROBILINOGEN,URINE NEGATIVE mg/dL (<2.0)
[2019-08-12 10:35] LABS: ALBUMIN 4.9 g/dL (3.5-5.0); ALKALINE PHOSPHATASE 79 U/L (38-126); ANION GAP 10 (5-19); ASPARTATE AMINO TRANSFERASE 25 U/L (14-36); BILIRUBIN,TOTAL 0.7 mg/dL (0.2-1.3); BLOOD UREA NITROGEN 8 mg/dL (7-20); CALCIUM 10.4 mg/dL (8.4-10.2); CARBON DIOXIDE 25 mmol/L (22-30); CHLORIDE 107 mmol/L (98-107); GLUCOSE 104 mg/dL (75-110); TOTAL PROTEIN 8.4 g/dL (6.3-8.2)
[2019-08-12] MEDS ORDERED: NORMAL SALINE 1000 ML 1,000 ML IV ONE (11:00)
[2019-08-12] MEDS ORDERED: ONDANSETRON HCL INJ/PF 4 MG/2 ML SDV IV ONE (11:01)
[2019-08-12] MEDS ORDERED: MORPHINE SULFATE 10 MG/ML INJ IV ONE ×2 (11:01→12:03)
--- NOTE | 2019-08-12 11:03 | ER Document Report ---
ED Medical Screen (RME) - General Chief Complaint: Abdominal Pain Stated Complaint: ABDOMINAL PAIN Time Seen by Provider: 08/12/19 10:55 Notes: Patient is a 58-year-old female with history of diverticulosis and gallbladder disease who presents today with abdominal pain. States that she had a HIDA scan normally has 5% of her gallbladder that is functioning. Patient states that after her scan she felt okay, but when she got home she ended up having left lower quadrant abdominal pain. Patient states that the left lower quadrant abdominal pain is worse than the right. Exam: Very tender left lower quadrant. I have greeted and performed a rapid initial assessment of this patient. A comprehensive ED assessment and evaluation of the patient, analysis of test results and completion of medical decision making process will be conducted by an additional ED providers. TRAVEL OUTSIDE OF THE [place] IN LAST 30 DAYS: No - Related Data Allergies/Adverse Reactions: No Known Allergies Allergy (Verified 08/12/19 09:32) Past Medical History - Social History Chew tobacco use (# tins/day): No Frequency of alcohol use: None Drug Abuse: None - Past Medical History Cardiac Medical History: Denies: Hx Coronary Artery Disease, Hx Heart Attack, Hx Hypertension Pulmonary Medical History: Denies: Hx Asthma, Hx Bronchitis, Hx COPD, Hx Pneumonia Neurological Medical History: Denies: Hx Cerebrovascular Accident, Hx Seizures Renal/ Medical History: Reports: Hx Ectopic . Denies: Hx Peritoneal Dialysis Malignancy Medical History: Reports: Hx Cervical Cancer - Told 30 yrs ago she had cervical cancer, had partial hyst, removed ovaries Musculoskeltal Medical History: Denies Hx Arthritis Psychiatric Medical History: Reports: Hx Bipolar Disorder - controlled without medication Past Surgical History: Reports: Hx Abdominal Surgery - Right Salpingo- oophorectomy, left salpingoectomy with partial oophorectomy, Hx Appendectomy, Hx Gynecologic Surgery, Hx Hysterectomy, Hx Ileostomy, Hx Tubal Ligation - Immunizations Hx Diphtheria, Pertussis, Tetanus Vaccination: Yes Physical Exam - Vital signs Vitals: Temp Pulse Resp BP Pulse Ox 98.6 F 78 20 131/91 H 98 08/12/19 09:26 08/12/19 09:26 08/12/19 09:26 08/12/19 09:26 08/12/19 09:26 Course - Vital Signs Vital signs: Temp Pulse Resp BP Pulse Ox 98.6 F 78 20 131/91 H 98 08/12/19 09:26 08/12/19 09:26 08/12/19 09:26 08/12/19 09:26 08/12/19 09:26 - Laboratory Result Diagrams: 08/12/19 09:42 08/12/19 09:42 Laboratory results interpreted by me: 08/12/19 08/12/19 08/12/19 09:42 09:42 09:42 RDW 14.1 H [place] % (Auto) 2.7 L Creatinine 0.50 L Calcium 10.4 H Total Protein 8.4 H Urine Ketones 20 H Urine Blood MODERATE H Ur Leukocyte Esterase TRACE H
--- NOTE | 2019-08-12 11:41 | ER Document Report ---
ED GI/ - General Chief Complaint: Abdominal Pain Stated Complaint: ABDOMINAL PAIN Time Seen by Provider: 08/12/19 10:55 Notes: CHIEF COMPLAINT: Abdominal pain for 4 days HPI: 58-year-old female with history of diverticulitis presenting to the emergency department complaining of lower abdominal pain progressively worsening over the last 4 days. Pain is been constant in nature. Patient states it feels similar to prior episode of diverticulitis she has had nausea no vomiting no fever ROS: See HPI - all other systems were reviewed and are otherwise negative Constitutional: no fever Eyes: no drainage, no blurred vision ENT: no runny nose, no sore throat Cardiovascular: no chest pain Resp: no SOB, no cough GI: no vomiting, no diarrhea, + abdominal pain : no dysuria Integumentary: no rash Allergy: no hives Musculoskeletal: no extremity pain or swelling Neurological: no numbness/tingling, no weakness MEDICATIONS: I agree with the patient medications as charted by the RN. ALLERGIES: I agree with the allergies as charted by the RN. PAST MEDICAL HISTORY/PAST SURGICAL HISTORY: Reviewed and agree as charted by RN. SOCIAL HISTORY: Reviewed and agree as charted by RN. FAMILY HISTORY: No significant familial comorbid conditions directly related to patient complaint EXAM: Reviewed vital signs as charted by RN. CONSTITUTIONAL: Alert and oriented and responds appropriately to questions. Well-appearing; well-nourished HEAD: Normocephalic; atraumatic EYES: PERRL; Conjunctivae clear, sclerae non-icteric ENT: normal nose; no rhinorrhea; moist mucous membranes; pharynx without lesions noted, no uvula edema or deviation, no tonsillar hypertrophy, phonation normal NECK: Supple without meningismus; non-tender; no cervical lymphadenopathy, no masses CARD: RRR; no murmurs, no clicks, no rubs, no gallops; symmetric distal pulses RESP: Normal chest excursion without splinting or tachypnea; breath sounds clear and equal bilaterally; no wheezes, no rhonchi, no rales, pulse oximetry 97% on room air not hypoxic ABD/GI: Normal bowel sounds; non-distended; soft, moderate tenderness over the lower abdomen on palpation, no rebound, no guarding; no palpable organomegaly or masses. BACK: The back appears normal and is non-tender to palpation, there is no CVA tenderness EXT: Normal ROM in all joints; non-tender to palpation; no cyanosis, no effusions, no edema SKIN: Normal color for age and race; warm; dry; good turgor; no acute lesions noted NEURO: Moves all extremities equally; Motor and sensory function intact PSYCH: The patient's mood and manner are appropriate. Grooming and personal hygiene are appropriate. MDM: 58-year-old female with lower abdominal pain over the last 4 days with history of diverticulitis. Screening labs and CT ordered in triage process TRAVEL OUTSIDE OF THE [place] IN LAST 30 DAYS: No - Related Data Allergies/Adverse Reactions: No Known Allergies Allergy (Verified 08/12/19 09:32) Past Medical History - Social History Smoking Status: Never Smoker Chew tobacco use (# tins/day): No Frequency of alcohol use: None Drug Abuse: None Family History: Reviewed & Not Pertinent - Past Medical History Cardiac Medical History: Denies: Hx Coronary Artery Disease, Hx Heart Attack, Hx Hypertension Pulmonary Medical History: Denies: Hx Asthma, Hx Bronchitis, Hx COPD, Hx Pneumonia Neurological Medical History: Denies: Hx Cerebrovascular Accident, Hx Seizures Renal/ Medical History: Reports: Hx Ectopic . Denies: Hx Peritoneal Dialysis Malignancy Medical History: Reports: Hx Cervical Cancer - Told 30 yrs ago she had cervical cancer, had partial hyst, removed ovaries Musculoskeletal Medical History: Denies Hx Arthritis Psychiatric Medical History: Reports: Hx Bipolar Disorder - controlled without medication Past Surgical History: Reports: Hx Abdominal Surgery - Right Salpingo- oophorectomy, left salpingoectomy with partial oophorectomy, Hx Appendectomy, Hx Gynecologic Surgery, Hx Hysterectomy, Hx Ileostomy, Hx Tubal Ligation - Immunizations Hx Diphtheria, Pertussis, Tetanus Vaccination: Yes Physical Exam - Vital signs Vitals: Temp Pulse Resp BP Pulse Ox 98.6 F 78 20 131/91 H 98 08/12/19 09:26 08/12/19 09:26 08/12/19 09:26 08/12/19 09:26 08/12/19 09:26 Course - Re-evaluation Re-evalutation: 08/12/19 13:39 Discussed evaluation results at length with the patient. We will place her on a course of pain medication. Discharged to follow-up with her center medical and lab director. She states she had been referred to [facility] for cholecystectomy, she would prefer to do this locally, will refer her to Dr. Chaudhry - Vital Signs Vital signs: Temp Pulse Resp BP Pulse Ox 97.8 F 70 20 136/84 H 97 08/12/19 12:58 08/12/19 12:58 08/12/19 12:58 08/12/19 12:56 08/12/19 12:58 - Laboratory Result Diagrams: 08/12/19 09:42 08/12/19 09:42 Laboratory results interpreted by me: 08/12/19 08/12/19 08/12/19 09:42 09:42 09:42 RDW 14.1 H [place] % (Auto) 2.7 L Creatinine 0.50 L Calcium 10.4 H Total Protein 8.4 H Urine Ketones 20 H Urine Blood MODERATE H Ur Leukocyte Esterase TRACE H Discharge - Discharge Clinical Impression: Abdominal pain, bilateral lower quadrant, Diverticulosis Condition: Stable Disposition: HOME, SELF-CARE Additional Instructions: Your lab work and CT imaging did not show acute emergent abnormalities. Follow- up closely with Dr. Menard by phone today to discuss further management in the office and possible referral locally for surgery as discussed. You are being given the number of a local surgeon for further follow-up as well. Take the pain medication as prescribed do not drive if taking narcotics for pain. Return for onset of fever or worsening symptoms Prescriptions: Hydrocodone/Acetaminophen [[place] 5-325 mg Tablet] 1 tab PO Q4 PRN #15 tablet PRN Reason: Ondansetron [Zofran Odt 4 mg Tablet] 1 - 2 tab PO Q4H PRN #15 tab.rapdis PRN Reason: For Nausea/Vomiting Referrals: QUENTIN CHAUDHRY MD [ACTIVE STAFF] - Follow up as needed
--- NOTE | 2019-08-12 12:25 | RADIOLOGY REPORT (SQ) ---
EXAM DESCRIPTION: CT ABD/PELVIS WITH IV ONLY IMAGES COMPLETED DATE/TIME: 08/12/2019 10:54 am REASON FOR STUDY: LLQ abdominal pain. Prior appendectomy and partial hysterectomy. COMPARISON: 07/09/2019 TECHNIQUE: CT scan of the abdomen and pelvis performed using helical scanning technique with dynamic intravenous contrast injection. No oral contrast. Images reviewed with lung, soft tissue, and bone windows. Reconstructed coronal and sagittal MPR images reviewed. Delayed images for evaluation of the urinary system also acquired. All images stored on PACS. All CT scanners at this facility use dose modulation, iterative reconstruction, and/or weight based d osing when appropriate to reduce radiation dose to as low as reasonably achievable (ALARA). [facility]: Dose Right [facility]: CareDose [facility]: Dose Right [facility]: Teradose 4D [facility]: [employer] CONTRAST TYPE AND DOSE: contrast/concentration: Isovue 350.00 mmol/ml; Total Contrast Delivered: 57. 0 ml; Total Saline Delivered: 65.0 ml RENAL FUNCTION: GFR > 60. RADIATION DOSE: CT Rad equipment meets quality standard of care and radiation dose reduction techniq ues were employed. CTDIvol: 4.8 - 4.8 mGy. DLP: 451 mGy-cm.. LIMITATIONS: None. FINDINGS: LOWER CHEST: No significant findings. No nodules or infiltrates. LIVER: Normal size. No masses. No dilated ducts. SPLEEN: Normal size. No focal lesions. PANCREAS: No masses. No significant calcifications. No adjacent inflammation or peripancreatic fluid collections. Pancreatic duct not dilated. GALLBLADDER: No identified stones by CT criteria. No inflammatory changes to suggest cholecystitis. ADRENAL GLANDS: No significant masses or asymmetry. RIGHT KIDNEY AND URETER: Multiple renal cortical cysts. No solid mass. No significant calcificatio ns. No hydronephrosis or hydroureter. LEFT KIDNEY AND URETER: Multiple renal cortical cysts. No solid mass. No significant calcification s. No hydronephrosis or hydroureter. AORTA AND VESSELS: No aneurysm. No dissection. Renal arteries, SMA, celiac without stenosis. RETROPERITONEUM: No retroperitoneal adenopathy, hemorrhage or masses. BOWEL AND PERITONEAL CAVITY: There is colonic diverticulosis without evidence of diverticulitis. No bowel obstruction. No bowel wall thickening or mass. No significant inflammatory change. No ascite s or pneumoperitoneum. APPENDIX: Surgically absent. PELVIS: Status post hysterectomy. No adnexal mass. Urinary bladder has normal contour. No bladder wall thickening, intraluminal bladder mass or debris. Calcified pelvic phleboliths. ABDOMINAL WALL: No masses. No hernias. BONES: No significant or acute findings. OTHER: No other significant finding. IMPRESSION: 1. No acute abnormality to explain the patient's left lower quadrant abdominal pain. 2. Colonic diverticulosis without evidence of diverticulitis. 3. Bilateral renal cortical cysts. TECHNICAL DOCUMENTATION: JOB ID: [id number] Quality ID # [id number]: Final reports with documentation of one or more dose reduction techniques (e.g., Au tomated exposure control, adjustment of the mA and/or kV according to patient size, use of iterative reconstruction technique) 2010 [employer]- All Rights Reserved Reading location - IP/workstation name: [email or web address]
[2019-08-12 13:51] VITALS: BP 122/73
== END 2019-08-12 13:50 | disposition home or self-care (01) ==
LOC: ER 09:21
DX: K57.90 Diverticulosis of intestine, part unspecified, without perforation or abscess without bleeding (principal); R10.31 Right lower quadrant pain; R10.32 Left lower quadrant pain; R11.0 Nausea
CPT/HCPCS: 96376; 99284; 96361; 96374; 96375; 36415; 83690; 85025; 80053; 81001; 74177; J2270; J2405; J7030

== ENCOUNTER 2019-08-26 15:55 | Emergency (ER) | payer OTHER ==
[2019-08-26] MEDS ORDERED: MORPHINE SULFATE 10 MG/ML INJ IV ONE (16:57)
[2019-08-26] MEDS ORDERED: NORMAL SALINE 1000 ML 1,000 ML IV PRN (16:57)
--- NOTE | 2019-08-26 16:59 | ER Document Report ---
ED Medical Screen (RME) - General Chief Complaint: Abdominal Pain Stated Complaint: LOWER ABDOMINAL PAIN Time Seen by Provider: 08/26/19 16:56 Mode of Arrival: Ambulatory Information source: Patient Notes: This is a 58-year-old female presented to the emergency room today stating that she had left upper and lower abdominal discomfort she does have a history of diverticulitis and gallbladder disease. She has had nausea and vomiting no diarrhea she last ate yesterday afternoon. TRAVEL OUTSIDE OF THE [place] IN LAST 30 DAYS: No - Related Data Allergies/Adverse Reactions: No Known Allergies Allergy (Verified 08/12/19 09:32) Home Medications: tylenol prn Past Medical History - Social History Frequency of alcohol use: None Drug Abuse: None - Past Medical History Cardiac Medical History: Denies: Hx Coronary Artery Disease, Hx Heart Attack, Hx Hypertension Pulmonary Medical History: Denies: Hx Asthma, Hx Bronchitis, Hx COPD, Hx Pneumonia Neurological Medical History: Denies: Hx Cerebrovascular Accident, Hx Seizures Renal/ Medical History: Reports: Hx Ectopic . Denies: Hx Peritoneal Dialysis Malignancy Medical History: Reports: Hx Cervical Cancer - Told 30 yrs ago she had cervical cancer, had partial hyst, removed ovaries Musculoskeltal Medical History: Denies Hx Arthritis Psychiatric Medical History: Reports: Hx Bipolar Disorder - controlled without medication Past Surgical History: Reports: Hx Abdominal Surgery - Right Salpingo- oophorectomy, left salpingoectomy with partial oophorectomy, Hx Appendectomy, Hx Gynecologic Surgery, Hx Hysterectomy, Hx Ileostomy, Hx Tubal Ligation - Immunizations Hx Diphtheria, Pertussis, Tetanus Vaccination: Yes Physical Exam - Vital signs Vitals: Temp Pulse Resp BP Pulse Ox 98.4 F 59 L 16 134/78 H 98 08/26/19 16:17 08/26/19 16:17 08/26/19 16:17 08/26/19 16:17 08/26/19 16:17 Course - Vital Signs Vital signs: Temp Pulse Resp BP Pulse Ox 98.4 F 59 L 16 134/78 H 98 08/26/19 16:17 08/26/19 16:17 08/26/19 16:17 08/26/19 16:17 08/26/19 16:17
[2019-08-26 17:23] LABS: ABSOLUTE BASOPHILS # (AUTO) 0.1 10^3/uL (0.0-0.2); ABSOLUTE LYMPHOCYTES (AUTO) 3.2 10^3/uL (0.5-4.7); ABSOLUTE MONOCYTES (AUTO) 0.5 10^3/uL (0.1-1.4); ABSOLUTE NEUT (AUTO) 4.1 10^3/uL (1.7-8.2); BASOPHILS % (AUTO) 1.4 % (0-2); EOSINOPHILS % (AUTO) 0.4 % (0-6); HEMATOCRIT 37.8 % (36.0-47.0); LYMPHOCYTES % (AUTO) 40.7 % (13-45); MEAN CORPUSCULAR HEMOGLOBIN 29.8 pg (27.0-33.4); MEAN CORPUSCULAR HGB CONC 34.3 g/dL (32.0-36.0); MEAN CORPUSCULAR VOLUME 87 fl (80-97); MONOCYTES % (AUTO) 5.8 % (3-13); PLATELET COUNT 409 10^3/uL (150-450); RED BLOOD COUNT 4.35 10^6/uL (3.72-5.28); RED CELL DISTRIBUTION WIDTH 13.8 % (11.5-14.0); SEGMENTED NEUTROPHILS % (AUTO) 51.7 % (42-78); TOTAL CELLS COUNTED % (AUTO) 100 %; WHITE BLOOD COUNT 7.8 10^3/uL (4.0-10.5)
[2019-08-26 17:39] LABS: ALBUMIN 4.4 g/dL (3.5-5.0); ALKALINE PHOSPHATASE 94 U/L (38-126); ANION GAP 10 (5-19); ASPARTATE AMINO TRANSFERASE 26 U/L (14-36); BILIRUBIN,TOTAL 0.6 mg/dL (0.2-1.3); BLOOD UREA NITROGEN 11 mg/dL (7-20); CARBON DIOXIDE 23 mmol/L (22-30); CHLORIDE 107 mmol/L (98-107); GLUCOSE 96 mg/dL (75-110); TOTAL PROTEIN 7.6 g/dL (6.3-8.2)
[2019-08-26] MEDS ORDERED: HYDROMORPHONE HCL INJ/PF 2 MG/ML AMPULE IV ONE (19:21)
--- NOTE | 2019-08-26 19:24 | ER Document Report ---
ED General - General Chief Complaint: Abdominal Pain Stated Complaint: LOWER ABDOMINAL PAIN Time Seen by Provider: 08/26/19 16:56 Mode of Arrival: Ambulatory Notes: Patient is a 58-year-old white female with a history of diverticulitis and gallbladder disease who presents to the emergency department with a chief compl aint of abdominal pain. She states she has been dealing with this for many months. She states these episodes wax and wane. She is been seen here for this several times previously. She reports that she was referred to an outpatient clinic where she had testing done by Dr. Menard, which showed only 5% function of the gallbladder. She states she is scheduled for consultation next week to discuss having the gallbladder removed but states that she continues to deal with abdominal pain. She reports that its involving the lower abdomen and right upper quadrant. She denies any nausea, vomiting or diarrhea. States that it seems to be worse when urinating. She has no history of mesenteric ischemia or infarction, no history of embolic disease or blood clot otherwise. Non-smoker. TRAVEL OUTSIDE OF THE [place] IN LAST 30 DAYS: No - Related Data Allergies/Adverse Reactions: No Known Allergies Allergy (Verified 08/12/19 09:32) Home Medications: tylenol prn Past Medical History - General Information source: Patient - Social History Smoking Status: Never Smoker Frequency of alcohol use: None Drug Abuse: None Family History: Reviewed & Not Pertinent Patient has homicidal ideation: No - Past Medical History Cardiac Medical History: Denies: Hx Coronary Artery Disease, Hx Heart Attack, Hx Hypertension Pulmonary Medical History: Denies: Hx Asthma, Hx Bronchitis, Hx COPD, Hx Pneumonia Neurological Medical History: Denies: Hx Cerebrovascular Accident, Hx Seizures Renal/ Medical History: Reports: Hx Ectopic . Denies: Hx Peritoneal Dialysis Malignancy Medical History: Reports: Hx Cervical Cancer - Told 30 yrs ago she had cervical cancer, had partial hyst, removed ovaries Musculoskeletal Medical History: Denies Hx Arthritis Psychiatric Medical History: Reports: Hx Bipolar Disorder - controlled without medication Past Surgical History: Reports: Hx Abdominal Surgery - Right Salpingo- oophorectomy, left salpingoectomy with partial oophorectomy, Hx Appendectomy, Hx Gynecologic Surgery, Hx Hysterectomy, Hx Ileostomy, Hx Tubal Ligation - Immunizations Hx Diphtheria, Pertussis, Tetanus Vaccination: Yes Review of Systems - Review of Systems Constitutional: denies: Fever EENT: denies: Throat pain Cardiovascular: denies: Chest pain Respiratory: denies: Short of breath Gastrointestinal: Abdominal pain. denies: Diarrhea, Nausea, Vomiting Genitourinary: denies: Burning, Dysuria Female Genitourinary: denies: Irregular period Musculoskeletal: denies: Back pain Skin: denies: Change in color Hematologic/Lymphatic: denies: Easy bleeding Neurological/Psychological: denies: Headaches Physical Exam - Vital signs Vitals: Temp Pulse Resp BP Pulse Ox 98.4 F 59 L 16 134/78 H 98 08/26/19 16:17 08/26/19 16:17 08/26/19 16:17 08/26/19 16:17 08/26/19 16:17 - General General appearance: Appears well, Alert In distress: Mild - Respiratory Respiratory status: No respiratory distress Chest status: Nontender Breath sounds: Normal Chest palpation: Normal - Cardiovascular Rhythm: Regular Heart sounds: Normal auscultation - Abdominal Inspection: Normal Distension: No distension Bowel sounds: Normal Tenderness: Tender - Diffuse tenderness to palpation in all quadrants Organomegaly: No organomegaly - Neurological Neuro grossly intact: Yes Cognition: Normal Orientation: AAOx4 - Psychological Associated symptoms: Anxious, Tearful - Skin Skin Temperature: Warm Skin Moisture: Dry Skin Color: Normal Course - Re-evaluation Re-evalutation: 08/26/19 20:57 Reevaluation at this time, patient is resting comfortably in the room in no acute distress. States her pain has improved significantly. Consistent with her previous visits here she does appear to have evidence of urinary tract infection. She does admit that when she urinates this complicates her pain pattern. She has a consultation to have her gallbladder removed next week with Dr. Joe. She has no risk factors for mesenteric ischemia or infarction. We will treat her UTI with Keflex. She is requested "real pain medication" to go home with. I checked her [place] controlled substance monitoring reporting system and a file for her cannot be found using all the different criteria. We will give her a short course of [place], Pyridium and Keflex. We will also refer to urology as there seems to be some substance to this ongoing urinary tract infection that may or may not be complicating these pain presentations and patterns. Counseled her and her family regarding the importance of outpatient follow-up and advised they return here any ER immediately with any new, persistent or worsening symptoms. They verbalized understood and agreed. - Vital Signs Vital signs: Temp Pulse Resp BP Pulse Ox 98.4 F 59 L 16 134/78 H 98 08/26/19 16:17 08/26/19 16:17 08/26/19 16:17 08/26/19 16:17 08/26/19 16:17 - Laboratory Result Diagrams: 08/26/19 17:00 08/26/19 17:00 Laboratory results interpreted by me: 08/26/19 08/26/19 17:00 19:22 Creatinine 0.51 L Urine Ketones TRACE H Urine Blood MODERATE H Ur Leukocyte Esterase MODERATE H Discharge - Discharge Clinical Impression: History of gallbladder disease, History of diverticulosis Abdominal pain Qualifiers: Abdominal location: generalized Qualified Code(s): R10.84 - Generalized abdominal pain UTI (urinary tract infection) Qualifiers: Urinary tract infection type: site unspecified Hematuria presence: with hematuria Qualified Code(s): N39.0 - Urinary tract infection, site not specified; R31.9 - Hematuria, unspecified Condition: Stable Disposition: HOME, SELF-CARE Instructions: Urinary Tract Infection ([facility]), Abdominal Pain ([facility]) Additional Instructions: Follow-up with your regular doctor in 2 to 3 days for reevaluation. Return here or any ER immediately with any new, persistent or worsening symptoms. Prescriptions: Cephalexin Monohydrate [Keflex 500 mg Capsule] 500 mg PO Q6H 10 Days #39 capsule Phenazopyridine HCl [Pyridium 100 Mg Tablet] 200 mg PO TID PRN #6 tablet PRN Reason:
[2019-08-26 19:51] LABS: APPEARANCE,URINE SLIGHTLY-CLOUDY; BILIRUBIN,URINE NEGATIVE (NEGATIVE); COLOR,URINE YELLOW; GLUCOSE, URINE NEGATIVE (NEGATIVE); KETONES,URINE TRACE mg/dL (NEGATIVE); LEUKOCYTE ESTERASE,URINE MODERATE (NEGATIVE); NITRITE,URINE NEGATIVE (NEGATIVE); PROTEIN,URINE NEGATIVE (NEGATIVE); URINE SPECIFIC GRAVITY 1.008; UROBILINOGEN,URINE NEGATIVE mg/dL (<2.0)
--- NOTE | 2019-08-26 20:48 | RADIOLOGY REPORT (SQ) ---
EXAM DESCRIPTION: CT ABDOMEN PELVIS WITH IV CONTRAST COMPLETED DATE/TME: 08/26/2019 16:59 CLINICAL HISTORY: 58 years, Female, pain COMPARISON: None. TECHNIQUE: Images of the abdomen and pelvis were obtained with 100 mL Omnipaque 350 intravenously. Images stored on PACS. All CT scanners at this facility use dose modulation, iterative reconstruction, and/or weight based dosing when appropriate to reduce radiation dose to as low as reasonably achievable (ALARA). [facility]: Dose Right [facility]: CareDose [facility]: Dose Right [facility]: Teradose 4D [facility]: [employer] LIMITATIONS: None. FINDINGS: Visualized lung bases are clear. Small bilateral renal hypodensities are without significant interval change, likely on the basis of cysts. The liver, spleen, adrenal glands, gallbladder appear within normal limits. There is no definite pancreatic mass. There is a small hiatal hernia. There is colonic diverticulosis without evidence of diverticulitis. There is no free fluid or free air. The appendix is difficult to identify as an independent structure, however I see no secondary sign of acute appendicitis. There are arterial calcifications. There is no abdominal aortic aneurysm. There is no acute or suspicious bony abnormality. IMPRESSION: Chronic appearing findings as above. No acute abnormality is seen. TECHNICAL DOCUMENTATION: Quality ID # 436: Final reports with documentation of one or more dose reduction techniques (e.g., Automated exposure control, adjustment of the mA and/or kV according to patient size, use of iterative reconstruction technique) copyright 2011 [employer]- All Rights Reserved
[2019-08-26] MEDS ORDERED: CEPHALEXIN 500 MG CAPSULE PO ONE (20:59)
[2019-08-26] MEDS ORDERED: HYDROCODONE/ACETAMINOPHEN 5-325 MG (6 TAB/ER DISP) PO PRN (20:59)
[2019-08-26 21:44] VITALS: BP 123/91
== END 2019-08-26 21:45 | disposition home or self-care (01) ==
LOC: ER 15:55
DX: N39.0 Urinary tract infection, site not specified (principal); R31.9 Hematuria, unspecified; K82.9 Disease of gallbladder, unspecified; K57.90 Diverticulosis of intestine, part unspecified, without perforation or abscess without bleeding; R10.84 Generalized abdominal pain; R10.817 Generalized abdominal tenderness; Z87.19 Personal history of other diseases of the digestive system; Z85.41 Personal history of malignant neoplasm of cervix uteri
CPT/HCPCS: 99284; 96361; 96374; 96375; 36415; 83690; 85025; 80053; 81001; 74177; J2270; J1170; J7030

== ENCOUNTER 2019-09-09 16:38 | Emergency (ER) | payer OTHER, SELFPAY ==
[2019-09-09] MEDS ORDERED: ONDANSETRON 4 MG TAB.RAPDIS PO ONE (17:08)
[2019-09-09] MEDS ORDERED: OXYCODONE-ACETAMINOPHEN 5-325 MG TABLET PO ONE (17:08)
[2019-09-09] MEDS ORDERED: NORMAL SALINE 1000 ML 1,000 ML IV ONE (17:09)
--- NOTE | 2019-09-09 17:11 | ER Document Report ---
ED Medical Screen (RME) - General Chief Complaint: Abdominal Pain Stated Complaint: RECENT SURGERY - CHILLS/NAUSEA/MUSCLE PAIN/FEVER Time Seen by Provider: 09/09/19 17:05 Mode of Arrival: Ambulatory Information source: Patient Notes: 58-year-old female presented to ED for complaint of umbilical abdominal pain nausea and vomiting since . She states her gallbladder was removed outpatient at [facility] on Wednesday. She states she has had nausea no vomiting but feeling like she has fevers with sweating and chills. She states she was not sent home with any nausea medicine or any pain medicine except for Tylenol. She is alert oriented respirations regular nonlabored speaking in full sentences. I have greeted and performed a rapid initial assessment of this patient. A comprehensive ED assessment and evaluation of the patient, analysis of test results and completion of medical decision making process will be conducted by an additional ED providers. TRAVEL OUTSIDE OF THE [place] IN LAST 30 DAYS: No - Related Data Allergies/Adverse Reactions: No Known Allergies Allergy (Verified 08/12/19 09:32) Past Medical History - Past Medical History Cardiac Medical History: Denies: Hx Coronary Artery Disease, Hx Heart Attack, Hx Hypertension Pulmonary Medical History: Denies: Hx Asthma, Hx Bronchitis, Hx COPD, Hx Pneumonia Neurological Medical History: Denies: Hx Cerebrovascular Accident, Hx Seizures Renal/ Medical History: Reports: Hx Ectopic . Denies: Hx Peritoneal Dialysis Malignancy Medical History: Reports: Hx Cervical Cancer - Told 30 yrs ago she had cervical cancer, had partial hyst, removed ovaries Musculoskeltal Medical History: Denies Hx Arthritis Psychiatric Medical History: Reports: Hx Bipolar Disorder - controlled without medication Past Surgical History: Reports: Hx Abdominal Surgery - Right Salpingo- oophorectomy, left salpingoectomy with partial oophorectomy, Hx Appendectomy, Hx Gynecologic Surgery, Hx Hysterectomy, Hx Ileostomy, Hx Tubal Ligation - Immunizations Hx Diphtheria, Pertussis, Tetanus Vaccination: Yes Physical Exam - Vital signs Vitals: Temp Pulse Resp BP Pulse Ox 98.4 F 92 16 143/84 H 96 09/09/19 16:45 09/09/19 16:45 09/09/19 16:45 09/09/19 16:45 09/09/19 16:45 Course - Vital Signs Vital signs: Temp Pulse Resp BP Pulse Ox 98.4 F 92 16 143/84 H 96 09/09/19 16:45 09/09/19 16:45 09/09/19 16:45 09/09/19 16:45 09/09/19 16:45
[2019-09-09 18:01] LABS: ABSOLUTE BASOPHILS # (AUTO) 0.1 10^3/uL (0.0-0.2); ABSOLUTE LYMPHOCYTES (AUTO) 2.3 10^3/uL (0.5-4.7); ABSOLUTE MONOCYTES (AUTO) 0.4 10^3/uL (0.1-1.4); ABSOLUTE NEUT (AUTO) 3.9 10^3/uL (1.7-8.2); BASOPHILS % (AUTO) 0.9 % (0-2); EOSINOPHILS % (AUTO) 0.3 % (0-6); HEMATOCRIT 41.6 % (36.0-47.0); HEMOGLOBIN 14.3 g/dL (12.0-15.5); LYMPHOCYTES % (AUTO) 34.5 % (13-45); MEAN CORPUSCULAR HEMOGLOBIN 30.1 pg (27.0-33.4); MEAN CORPUSCULAR HGB CONC 34.4 g/dL (32.0-36.0); MEAN CORPUSCULAR VOLUME 88 fl (80-97); MONOCYTES % (AUTO) 6.3 % (3-13); PLATELET COUNT 470 10^3/uL (150-450); RED BLOOD COUNT 4.76 10^6/uL (3.72-5.28); RED CELL DISTRIBUTION WIDTH 13.6 % (11.5-14.0); TOTAL CELLS COUNTED % (AUTO) 100 %; WHITE BLOOD COUNT 6.8 10^3/uL (4.0-10.5)
[2019-09-09 18:02] LABS: APPEARANCE,URINE CLEAR; BILIRUBIN,URINE NEGATIVE (NEGATIVE); COLOR,URINE YELLOW; GLUCOSE, URINE NEGATIVE (NEGATIVE); KETONES,URINE 20 mg/dL (NEGATIVE); LEUKOCYTE ESTERASE,URINE SMALL (NEGATIVE); NITRITE,URINE NEGATIVE (NEGATIVE); PROTEIN,URINE NEGATIVE (NEGATIVE); URINE SPECIFIC GRAVITY 1.009; UROBILINOGEN,URINE NEGATIVE mg/dL (<2.0)
[2019-09-09 18:09] LABS: ALBUMIN 4.7 g/dL (3.5-5.0); ALKALINE PHOSPHATASE 99 U/L (38-126); ANION GAP 15 (5-19); ASPARTATE AMINO TRANSFERASE 33 U/L (14-36); BILIRUBIN,DIRECT 0.1 mg/dL (0.0-0.4); BILIRUBIN,TOTAL 0.8 mg/dL (0.2-1.3); BLOOD UREA NITROGEN 12 mg/dL (7-20); CALCIUM 10.1 mg/dL (8.4-10.2); CARBON DIOXIDE 21 mmol/L (22-30); CHLORIDE 100 mmol/L (98-107); GLUCOSE 120 mg/dL (75-110); POTASSIUM 3.6 mmol/L (3.6-5.0); TOTAL PROTEIN 8.1 g/dL (6.3-8.2)
--- NOTE | 2019-09-09 18:52 | RADIOLOGY REPORT (SQ) ---
EXAM DESCRIPTION: U/S ABDOMEN LIMITED W/O DOP IMAGES COMPLETED DATE/TIME: 09/09/2019 6:39 pm REASON FOR STUDY: Abdominal pain nv cholecystectomy Wednesday COMPARISON: None. TECHNIQUE: Dynamic and static grayscale images acquired of the abdomen and recorded on PACS. Additio nal selected color Doppler and spectral images recorded. LIMITATIONS: None. FINDINGS: PANCREAS: No masses. Visualized pancreatic duct normal caliber. LIVER: No masses. Echotexture normal. LIVER VASCULATURE: Normal directional flow of the main portal vein and hepatic veins. GALLBLADDER: Surgically absent. ULTRASOUND-DETECTED PICKENS'S SIGN: Negative. INTRAHEPATIC DUCTS AND COMMON DUCT: CBD and intrahepatic ducts normal caliber. No filling defects. INFERIOR VENA CAVA: Normal flow. AORTA: No aneurysm. RIGHT KIDNEY: Normal size. Normal echogenicity. No solid or suspicious masses. No hydronephrosis. No calcifications. PERITONEAL AND RIGHT PLEURAL SPACE: No ascites or effusions. OTHER: No other significant findings. IMPRESSION: Gallbladder surgically absent. No other significant finding. TECHNICAL DOCUMENTATION: JOB ID: [id number] 2010 [employer]- All Rights Reserved Reading location - IP/workstation name: [email or web address]
[2019-09-09] MEDS ORDERED: MORPHINE SULFATE 10 MG/ML INJ IV ONE (20:56)
--- NOTE | 2019-09-09 20:58 | ER Document Report ---
ED General - General Chief Complaint: Abdominal Pain Stated Complaint: RECENT SURGERY - CHILLS/NAUSEA/MUSCLE PAIN/FEVER Time Seen by Provider: 09/09/19 17:05 Primary Care Provider: CHRISTOPHER TOURE PA-C [Primary Care Provider] - Follow up as needed Mode of Arrival: Ambulatory Notes: Patient is a 58-year-old female that comes emergency department for chief complaint of abdominal pain, nausea, body aches, chills, sweats. She states she is postop cholecystectomy by Dr. Darshan Ansari at [facility] on 09/06/2019. She states that she has nausea and pain medication at home but despite these she still has pain and nausea symptoms. She denies vomiting, fever, chest pain, shortness of breath. She has had several loose stools, nonbloody. Past medical history also includes appendectomy, hysterectomy, bipolar. No other medical history reported. TRAVEL OUTSIDE OF THE [place] IN LAST 30 DAYS: No - Related Data Allergies/Adverse Reactions: No Known Allergies Allergy (Verified 08/12/19 09:32) Past Medical History - General Information source: Patient - Social History Smoking Status: Never Smoker Frequency of alcohol use: None Drug Abuse: None Lives with: Family Family History: Reviewed & Not Pertinent - Past Medical History Cardiac Medical History: Denies: Hx Coronary Artery Disease, Hx Heart Attack, Hx Hypertension Pulmonary Medical History: Denies: Hx Asthma, Hx Bronchitis, Hx COPD, Hx Pneumonia Neurological Medical History: Denies: Hx Cerebrovascular Accident, Hx Seizures Renal/ Medical History: Reports: Hx Ectopic . Denies: Hx Peritoneal Dialysis Malignancy Medical History: Reports: Hx Cervical Cancer - Told 30 yrs ago she had cervical cancer, had partial hyst, removed ovaries Musculoskeletal Medical History: Denies Hx Arthritis Psychiatric Medical History: Reports: Hx Bipolar Disorder - controlled without medication Past Surgical History: Reports: Hx Abdominal Surgery - Right Salpingo- oophorectomy, left salpingoectomy with partial oophorectomy, Hx Appendectomy, Hx Cholecystectomy, Hx Gynecologic Surgery, Hx Hysterectomy, Hx Ileostomy, Hx Tubal Ligation - Immunizations Hx Diphtheria, Pertussis, Tetanus Vaccination: Yes Review of Systems - Review of Systems Constitutional: See HPI EENT: No symptoms reported Cardiovascular: No symptoms reported Respiratory: No symptoms reported Gastrointestinal: See HPI Genitourinary: No symptoms reported Female Genitourinary: No symptoms reported Musculoskeletal: No symptoms reported Skin: No symptoms reported Hematologic/Lymphatic: No symptoms reported Neurological/Psychological: No symptoms reported Physical Exam - Vital signs Vitals: Temp Pulse Resp BP Pulse Ox 98.4 F 92 16 143/84 H 96 09/09/19 16:45 09/09/19 16:45 09/09/19 16:45 09/09/19 16:45 09/09/19 16:45 - Notes Notes: GENERAL: Alert, interacts well. Slightly cachectic appearing but patient is not in distress HEAD: Normocephalic, atraumatic. EYES: Pupils equal, round, and reactive to light. Extraocular movements intact. ENT: Oral mucosa moist, tongue midline. Oropharynx unremarkable. Airway patent. LUNGS: Clear to auscultation bilaterally, no wheezes, rales, or rhonchi. No respiratory distress. Non-tender chest wall. HEART: Regular rate and rhythm. No murmur ABDOMEN: There are 4 small healing wounds in the upper abdomen consistent with laparoscopic procedure, these are all well-healed, there is no surrounding erythema, tenderness, or drainage. There is generalized tenderness over the mid abdomen with a wincing but no guarding or severe tenderness or swelling. Bowel sounds are present. Unremarkable otherwise. EXTREMITIES: Moves all 4 extremities spontaneously. No edema, normal radial and dorsalis pedis pulses bilaterally. No cyanosis. BACK: no cervical, thoracic, lumbar midline tenderness. No saddle anesthesia, normal distal neurovascular exam. Moves all extremities in full range of motion. NEUROLOGICAL: Alert and oriented x3. Normal speech. Cranial nerves II through XII grossly intact. Strength 5/5 in all extremities. PSYCH: Normal affect, normal mood. SKIN: Warm, dry, normal turgor. No rashes or lesions noted. Course - Re-evaluation Re-evalutation: Patient is well-appearing on my exam. The surgical wounds look great, there is no sign of surgical wound infection. CBC, chemistry nonspecific, urine with a few white blood cells but patient has no urinary symptoms and after results were discussed and decision was made to simply place a culture. Ultrasound reviewed and unremarkable, however patient has generalized pain, reporting chills at home, she is concerned there is a postoperative abnormality. Cannot rule out without CT at this point, this was discussed and performed. CT shows ileus but no other concerning findings. I called and spoke with surgeon gas station manager for Dr. Ansari, Dr. Carpenter, discussed case in detail, evaluation, work-up. He recommends stool softeners, discharge, close follow-up with them in the surgical office, return precautions. I discussed with patient at length, I did offer to test her for COVID-19 but she declined. I feel this is appropriate based on her symptoms, patient states appreciation, agreement, she is stable and well-appearing at time of discharge. - Vital Signs Vital signs: Temp Pulse Resp BP Pulse Ox 98.7 F 71 16 139/79 H 98 09/10/19 00:30 09/10/19 00:30 09/10/19 00:30 09/10/19 00:30 09/10/19 00:30 - Laboratory Result Diagrams: 09/09/19 17:24 09/09/19 17:24 Laboratory results interpreted by me: 09/09/19 09/09/19 09/09/19 17:24 17:24 17:24 Plt Count 470 H Sodium 136.2 L Carbon Dioxide 21 L Creatinine 0.49 L Glucose 120 H Urine Ketones 20 H Urine Blood MODERATE H Ur Leukocyte Esterase SMALL H Discharge - Discharge Clinical Impression: Post-op pain, Ileus following gastrointestinal surgery Condition: Stable Disposition: HOME, SELF-CARE Additional Instructions: Your work-up shows an ileus but no concerning findings otherwise. Recommendation is to take the stool softeners provided, drink plenty of fluids, start with bland diet if needed, and follow-up closely with the general surgery office. I spoke with surgeon Dr. Carpenter, gas station manager for Dr. Darshan Ansari. I recommend that you drink 1/4 to 1/2 of the magnesium citrate, if you do not have any results form this you can try another 1/4 to half. You may need to take the Miralax stool softener for the next 2-4 days as well as prescribed. Take bentyl for cramping, zofran for nausea. Improve your diet - increased vegetables, fruits, fiber, and fluids are very helpful to clear your bowels. Return for any concerning/worsening sympotms including severe worsening pain, fever, vomiting, etc. Prescriptions: Polyethylene Glycol 3350 [Miralax Powder 17 gm/Packet] 1 packet PO DAILY PRN #1 pkg PRN Reason: Referrals: CHRISTOPHER TOURE PA-C [Primary Care Provider] - Follow up as needed
[2019-09-09] MEDS ORDERED: ONDANSETRON HCL INJ/PF 4 MG/2 ML SDV IV ONE (22:00)
--- NOTE | 2019-09-09 23:56 | RADIOLOGY REPORT (SQ) ---
EXAM DESCRIPTION: [facility]: CT ABDOMEN PELVIS WITH IV CONTRAST CLINICAL HISTORY: 58 years Female; post op abd pain, nausea, chills; TECHNIQUE: CT of the abdomen and pelvis using intravenous contrast. All CT scans at this facility use dose modulation, iterative reconstruction, and/or weight based dosing when appropriate to reduce radiation dose to as low as reasonably achievable. COMPARISON: CT 08/26/2019 FINDINGS: Abdomen: Stomach: No significant distention or surrounding edema. Liver: Intrahepatic biliary ductal prominence, new since prior exam. Gallbladder: Surgically absent. Distal common bile duct is approximately 7 mm. No fluid collections in the christine hepatis. No significant soft tissue edema. Pancreas:Within normal limits Spleen:Within normal limits Right kidney: Several small cysts as on prior exam. No hydronephrosis. Left kidney: Several small cysts, unchanged. No hydronephrosis. Adrenal glands:Within normal limits Vascular structures:Within normal limits Pelvis: Small bowel: A few air-fluid levels with mildly distended loops in the pelvis. No acute mesenteric edema. Appendix:Within normal limits Colon: Multiple diverticula, mostly along the sigmoid colon. No acute pericolonic edema. No free intraperitoneal fluid or air. Bones: No acute bone findings. Bladder: Nondistended. Uterus is unremarkable. No adnexal enlargement. IMPRESSION: 1. Interval cholecystectomy. Mild intrahepatic ductal prominence. No fluid collections in the gallbladder fossa. 2. No intra-abdominal abscess. 3. Mildly abnormal distal small bowel segments, suggesting the ileus. No associated inflammatory changes.
[2019-09-10] MEDS ORDERED: MAGNESIUM CITRATE 296 ML BOTTLE PO ONE (00:10)
[2019-09-10 00:33] VITALS: BP 139/79
== END 2019-09-10 00:30 | disposition home or self-care (01) ==
LOC: ER 16:38
DX: K56.7 Ileus, unspecified (principal); R10.9 Unspecified abdominal pain; G89.18 Other acute postprocedural pain; R11.0 Nausea; R68.83 Chills (without fever); R61 Generalized hyperhidrosis; R19.4 Change in bowel habit; Z90.49 Acquired absence of other specified parts of digestive tract
CPT/HCPCS: 99284; 96361; 96374; 96375; 36415; 87086; 83605; 83690; 85025; 80053; 81001; 76705; 74177; J3490; S0119; J2270; J2405; J7030

== ENCOUNTER 2019-11-28 13:49 | Emergency (ER) | payer SELFPAY ==
[2019-11-28] MEDS ORDERED: DIPHENHYDRAMINE HCL 50 MG/ML VIAL IV ONE (15:21)
[2019-11-28] MEDS ORDERED: ONDANSETRON HCL INJ/PF 4 MG/2 ML SDV IV ONE (15:21)
[2019-11-28] MEDS ORDERED: NORMAL SALINE 1000 ML 1,000 ML IV ONE ×2 (15:21→18:23)
--- NOTE | 2019-11-28 15:24 | ER Document Report ---
ED Medical Screen (RME) - General Chief Complaint: Urinary Problem Stated Complaint: PAINFUL URINATION,HEADACHE Time Seen by Provider: 11/28/19 15:16 Primary Care Provider: CHRISTOPHER TOURE PA-C [Primary Care Provider] - Follow up as needed TRAVEL OUTSIDE OF THE [place] IN LAST 30 DAYS: No - HPI Notes: 11/28/19 15:22 58-year-old female with a history of migraines presents emergency room for complaints of lower back pain, dysuria, frequency urgency for the last 3 days, started taking AZO which made it worse. Patient states that her UTI is causing her migraines to start, she started today with with her migraines such as photophobia phonophobia, states feels just like her previous migraines, denies that this was the worst headache of her life. Patient does not of a primary car e provider or a neurologist. Denies any chest pain, shortness of breath, reports vomiting, nausea and diarrhea. Patient does have a low-grade fever but denies any fevers or chills. I have greeted and performed a rapid initial assessment of this patient. A comprehensive ED assessment and evaluation of the patient, analysis of test results and completion of the medical decision making process will be conducted by additional ED providers. PHYSICAL EXAMINATION: GENERAL: Well-appearing, well-nourished and in no acute distress. HEAD: Atraumatic, normocephalic. EYES: Pupils equal round extraocular movements intact, conjunctiva are normal. NECK: Normal range of motion CV: s1, s2 regular LUNGS: No respiratory distress abd: L>R flank pain, suprapubic tenderness Musculoskeletal: Normal range of motion NEUROLOGICAL: Normal speech, normal gait. SKIN: Warm, Dry, normal turgor, no rashes or lesions noted. - Related Data Allergies/Adverse Reactions: No Known Allergies Allergy (Verified 08/12/19 09:32) Past Medical History - Past Medical History Cardiac Medical History: Denies: Hx Coronary Artery Disease, Hx Heart Attack, Hx Hypertension Pulmonary Medical History: Denies: Hx Asthma, Hx Bronchitis, Hx COPD, Hx Pneumonia Neurological Medical History: Denies: Hx Cerebrovascular Accident, Hx Seizures Renal/ Medical History: Reports: Hx Ectopic . Denies: Hx Peritoneal Dialysis Malignancy Medical History: Reports: Hx Cervical Cancer - Told 30 yrs ago she had cervical cancer, had partial hyst, removed ovaries Musculoskeltal Medical History: Denies Hx Arthritis Psychiatric Medical History: Reports: Hx Bipolar Disorder - controlled without medication Past Surgical History: Reports: Hx Abdominal Surgery - Right Salpingo- oophorectomy, left salpingoectomy with partial oophorectomy, Hx Appendectomy, Hx Cholecystectomy, Hx Gynecologic Surgery, Hx Hysterectomy, Hx Ileostomy, Hx Tubal Ligation - Immunizations Hx Diphtheria, Pertussis, Tetanus Vaccination: Yes Physical Exam - Vital signs Vitals: Temp Pulse Resp BP Pulse Ox 99.2 F 70 20 115/69 97 11/28/19 14:04 11/28/19 14:04 11/28/19 14:04 11/28/19 14:04 11/28/19 14:04 Course - Vital Signs Vital signs: Temp Pulse Resp BP Pulse Ox 99.2 F 70 20 115/69 97 11/28/19 14:04 11/28/19 14:04 11/28/19 14:04 11/28/19 14:04 11/28/19 14:04 Doctor's Discharge - Discharge Referrals: CHRISTOPHER TOURE PA-C [Primary Care Provider] - Follow up as needed
[2019-11-28 15:48] LABS: ABSOLUTE BASOPHILS # (AUTO) 0.1 10^3/uL (0.0-0.2); ABSOLUTE LYMPHOCYTES (AUTO) 2.9 10^3/uL (0.5-4.7); ABSOLUTE MONOCYTES (AUTO) 0.7 10^3/uL (0.1-1.4); ABSOLUTE NEUT (AUTO) 7.4 10^3/uL (1.7-8.2); BASOPHILS % (AUTO) 0.5 % (0-2); HEMATOCRIT 37.5 % (36.0-47.0); HEMOGLOBIN 12.9 g/dL (12.0-15.5); LYMPHOCYTES % (AUTO) 26.2 % (13-45); MEAN CORPUSCULAR HEMOGLOBIN 30.8 pg (27.0-33.4); MEAN CORPUSCULAR HGB CONC 34.4 g/dL (32.0-36.0); MEAN CORPUSCULAR VOLUME 90 fl (80-97); PLATELET COUNT 431 10^3/uL (150-450); RED BLOOD COUNT 4.19 10^6/uL (3.72-5.28); RED CELL DISTRIBUTION WIDTH 13.3 % (11.5-14.0); SEGMENTED NEUTROPHILS % (AUTO) 67.3 % (42-78); TOTAL CELLS COUNTED % (AUTO) 100 %
[2019-11-28 15:54] LABS: APPEARANCE,URINE SLIGHTLY-CLOUDY; BILIRUBIN,URINE NEGATIVE (NEGATIVE); COLOR,URINE AMBER; GLUCOSE, URINE NEGATIVE (NEGATIVE); KETONES,URINE NEGATIVE (NEGATIVE); LEUKOCYTE ESTERASE,URINE MODERATE (NEGATIVE); NITRITE,URINE POSITIVE (NEGATIVE); PROTEIN,URINE 100 mg/dL (NEGATIVE)
[2019-11-28 16:05] LABS: ALBUMIN 4.8 g/dL (3.5-5.0); ALKALINE PHOSPHATASE 194 U/L (38-126); ANION GAP 13 (5-19); ASPARTATE AMINO TRANSFERASE 69 U/L (14-36); BILIRUBIN,TOTAL 0.7 mg/dL (0.2-1.3); BLOOD UREA NITROGEN 10 mg/dL (7-20); CALCIUM 10.2 mg/dL (8.4-10.2); CARBON DIOXIDE 23 mmol/L (22-30); CHLORIDE 106 mmol/L (98-107); GLUCOSE 110 mg/dL (75-110); POTASSIUM 4.2 mmol/L (3.6-5.0); TOTAL PROTEIN 8.3 g/dL (6.3-8.2)
--- NOTE | 2019-11-28 17:56 | RADIOLOGY REPORT (SQ) ---
EXAM DESCRIPTION: U/S RETROPERITON LTD IMAGES COMPLETED DATE/TIME: 11/28/2019 5:35 pm REASON FOR STUDY: L>R flank pain COMPARISON: None. TECHNIQUE: Dynamic and static grayscale images acquired of the kidneys and bladder and recorded on P ACS. Additional selected color Doppler and spectral images recorded. LIMITATIONS: None. FINDINGS: RIGHT KIDNEY: Normal size, 9.5 cm. Normal echogenicity. No solid or suspicious masses . No hydronephrosis. No calcifications. LEFT KIDNEY: Normal size, 10.4 cm Normal echogenicity. No solid or suspicious masses. No hydro nephrosis. 5 mm middle calyceal calculus. BLADDER: No masses. Bilateral ureteral jets. OTHER FINDINGS: No other significant finding. IMPRESSION: Left intrarenal calculus. No other significant findings. TECHNICAL DOCUMENTATION: JOB ID: [id number] [employer]- All Rights Reserved Reading location - IP/workstation name: [email or web address]
[2019-11-28] MEDS ORDERED: CEFTRIAXONE INJ 1000 MG VIAL IV ONE (18:24)
[2019-11-28] MEDS ORDERED: KETOROLAC TROMETHAMINE INJ/PF 30 MG/1 ML SDV IV ONE (18:24)
--- NOTE | 2019-11-28 18:32 | ER Document Report ---
ED General - General Chief Complaint: Urinary Problem Stated Complaint: PAINFUL URINATION,HEADACHE Time Seen by Provider: 11/28/19 15:16 Primary Care Provider: CHRISTOPHER TOURE PA-C [Primary Care Provider] - Follow up as needed TRAVEL OUTSIDE OF THE [place] IN LAST 30 DAYS: No - HPI Notes: Chief complaint: Urinary symptoms, nausea/vomiting and migraine headache. History of present illness: 58-year-old female with no PMD is history of chronic/recurrent UTIs and migraine headaches. Now presents with 3-day history of urinary frequency and dysuria with pain radiating into her back. Associated chills without fever. Nausea with several episodes of vomiting. Says that since she has been here at hospitals afternoon she is developed 1 of her typical migraine headaches which she describes as left hemicranial pain throbbing in nature currently 8/10 intensity. No focal neurologic symptoms. Patient is a non-smoker. She has had a previous cholecystectomy. No known allergies. - Related Data Allergies/Adverse Reactions: No Known Allergies Allergy (Verified 08/12/19 09:32) Past Medical History - General Information source: Patient - Social History Smoking Status: Never Smoker Family History: Reviewed & Not Pertinent - Past Medical History Cardiac Medical History: Denies: Hx Coronary Artery Disease, Hx Heart Attack, Hx Hypertension Pulmonary Medical History: Denies: Hx Asthma, Hx Bronchitis, Hx COPD, Hx Pneumonia Neurological Medical History: Reports: Hx Migraine. Denies: Hx Cerebrovascular Accident, Hx Seizures Renal/ Medical History: Reports: Hx Ectopic . Denies: Hx Peritoneal Dialysis Malignancy Medical History: Reports: Hx Cervical Cancer - Told 30 yrs ago she had cervical cancer, had partial hyst, removed ovaries Musculoskeletal Medical History: Denies Hx Arthritis Psychiatric Medical History: Reports: Hx Bipolar Disorder - controlled without medication Past Surgical History: Reports: Hx Abdominal Surgery - Right Salpingo- oophorectomy, left salpingoectomy with partial oophorectomy, Hx Appendectomy, Hx Cholecystectomy, Hx Gynecologic Surgery, Hx Hysterectomy, Hx Ileostomy, Hx Tubal Ligation - Immunizations Hx Diphtheria, Pertussis, Tetanus Vaccination: Yes Review of Systems - Review of Systems Notes: Constitutional: Negative for fever. HENT: Negative for sore throat. Eyes: Negative for visual changes. Cardiovascular: Negative for chest pain. Respiratory: Negative for shortness of breath. Gastrointestinal: Aspiration. Genitourinary: As per HPI. Musculoskeletal: Negative for back pain. Skin: Negative for rash. Neurological: As per HPI. 10 point ROS negative except as marked above and in HPI. Physical Exam - Vital signs Vitals: Temp Pulse Resp BP Pulse Ox 99.2 F 70 20 115/69 97 11/28/19 14:04 11/28/19 14:04 11/28/19 14:04 11/28/19 14:04 11/28/19 14:04 - Notes Notes: GENERAL: Slender middle-age female appearing moderately uncomfortable. SKIN: Good turgor no rashes. HEAD: Normocephalic atraumatic. EYES: PERRLA. EOMI. Conjunctivae and sclerae clear. EARS: CANALS AND TMS CLEAR. NOSE: CLEAR. MOUTH: Moist mucosa. Good dentition. No stridor or edema. No drooling. NECK: Supple. No masses or thyromegaly. No adenopathy. Carotids 2+ without bruits. No JVD. BACK: Symmetrical with mild bilateral CVA tenderness. CHEST: Respirations unlabored. Breath sounds clear and symmetrical. HEART: Regular rhythm. No murmur gallop or rub. ABDOMEN: Moderate suprapubic tenderness. Soft without masses, organomegaly or rebound. Bowel sounds normally active. No bruits. GENITALIA: Deferred. EXTREMITIES: No edema. No calf tenderness. Cap refill less than 1.5 seconds. Dorsalis pedis and posterior tibial pulses 3+ and symmetrical. NEUROLOGICAL: GCS 15. Alert and oriented x3. Normal gait. Fluent speech. Cranial nerves II through XII intact. Sensorimotor and cerebellar normal. Normal tone. PSYCHIATRIC: Anxious tearful affect. Course - Re-evaluation Re-evalutation: 11/28/19 19:27 Patient received IV Toradol, IV Zofran IV normal saline. Her migraine symptoms are almost completely resolved. She also got IV Rocephin for her UTI. She appears stable for outpatient management. Findings, clinical impression and plan of treatment have been discussed with patient/family. Understanding of current findings and recommendations has been acknowledged by them and there is agreement regarding disposition and follow-up. 11/28/19 19:31 Findings, clinical impression and plan of treatment have been discussed with patient/family. Understanding of current findings and recommendations has been acknowledged by them and there is agreement regarding disposition and follow-up. - Vital Signs Vital signs: Temp Pulse Resp BP Pulse Ox 99.2 F 70 20 115/69 97 11/28/19 14:04 11/28/19 14:04 11/28/19 14:04 11/28/19 14:04 11/28/19 14:04 - Laboratory Result Diagrams: 11/28/19 15:32 11/28/19 15:32 Laboratory results interpreted by me: 11/28/19 11/28/19 11/28/19 15:32 15:32 15:32 WBC 11.0 H AST 69 H ALT 97 H Alkaline Phosphatase 194 H Total Protein 8.3 H Urine Protein 100 H Urine Blood MODERATE H Urine Nitrite POSITIVE H Urine Urobilinogen 4.0 H Ur Leukocyte Esterase MODERATE H Urine Ascorbic Acid 40 H Discharge - Discharge Clinical Impression: Acute pyelonephritis Migraine headache Qualifiers: Migraine type: unspecified Status migrainosus presence: without status migrainosus Intractability: not intractable Qualified Code(s): G43.909 - Migraine, unspecified, not intractable, without status migrainosus Condition: Stable Disposition: HOME, SELF-CARE Additional Instructions: Migraine Headache The physician feels that your symptoms are due to a migraine attack. Migraines are caused by changes in the blood vessels of the head. Arteries go into spasm, often causing warning symptoms that a headache may begin soon. As the spasm goes away, the vessels dilate and throb, causing the pounding pain of a migraine headache. Migraines often cause nausea and vomiting. The treatment of headaches varies with severity and cause of pain. Not all headaches need pain shots -- in fact, there is evidence that using narcotics for headaches may make them worse in the long run. The physician will determine the therapy that's in your best interest for this particular headache. Medications are available that may prevent migraines, or stop them as they first occur. If one medication is not helpful, try another. If migraines are frequent, be patient -- follow the doctor's recommendations. Call the physician if you are worsening, or if new symptoms arise. Pyelonephritis Your evaluation shows evidence of pyelonephritis. This is an infection in the kidney. Typical symptoms are fever, pain in the flank, pain on urination, and frequent urination. Many cases of pyelonephritis can be treated at home. Hospital care may be necessary for patients who are very ill, or elderly or . Pyelonephritis is treated with antibiotics. Be sure to take all the medication as prescribed. Drink plenty of liquids (about three quarts per day). You may take acetaminophen for fever. You should feel significantly improved within two days. You should have a recheck of your urine in about one week to insure that the infection is gone. Return for a re-examination if your symptoms worsen in any way -- such as high fever, shaking chills, severe weakness or dizziness, severe pain, or inability to pass your urine. Increase oral fluids. Follow-up with primary care physician within the next 48 hours. Return here as needed for new or worsening symptoms: Pain that is worsening or unimproved Uncontrolled vomiting High fever or shaking chills Overall worsening Prescriptions: Tramadol HCl [Ultram 50 mg Tablet] 50 mg PO Q4HP PRN #12 tab PRN Reason: Cephalexin Monohydrate [Keflex 500 mg Capsule] 500 mg PO Q6H 10 Days #40 capsule Ondansetron [Zofran Odt 4 mg Tablet] 1 - 2 tab PO Q4H PRN #15 tab.rapdis PRN Reason: For Nausea/Vomiting Referrals: CHRISTOPHER TOURE PA-C [Primary Care Provider] - Follow up as needed
[2019-11-28] MEDS ORDERED: DIPHENHYDRAMINE HCL 50 MG/ML VIAL ONE (18:45)
[2019-11-28] MEDS ORDERED: ONDANSETRON HCL INJ/PF 4 MG/2 ML SDV ONE (18:48)
[2019-11-28 21:42] VITALS: BP 132/81
== END 2019-11-28 20:35 | disposition home or self-care (01) ==
LOC: ER 13:49
DX: N10 Acute pyelonephritis (principal); G43.909 Migraine, unspecified, not intractable, without status migrainosus; N20.0 Calculus of kidney; R11.2 Nausea with vomiting, unspecified
CPT/HCPCS: 99285; 96361; 96375; 96365; 36415; 85025; 80053; 81001; 76775; J1200; J1885; J0696; J2405; J7030